=== PATIENT | female | born 1990 | race Caucasian/White ===

== ENCOUNTER 2024-07-10 09:44 | Outpatient (CLI) | payer OTHER, SELFPAY ==
[2024-07-10 14:28] LABS: Basophils Percent Auto 0.5 % (0.2-1.2); Eosinophils Absolute Auto 0.1 K/mm3 (0-0.3); Eosinophils Percent Auto 1.5 % (0-4.4); Hematocrit 41.2 % (37.0-47.0); Hemoglobin 13.5 g/dL (12.0-15.0); Immature Granulocyte Absolute 0.01 K/mm3 (0.00-0.031); Immature Granulocyte Percent A 0.1 % (0-0.5); Lymphocytes Absolute Auto 2.04 K/mm3 (0.9-3.2); Lymphocytes Percent Auto 27.7 % (18.3-44.2); Mean Corpuscular HGB Conc 32.8 g/dl (32-36); Mean Corpuscular Hemoglobin 30.7 pg (26-34); Mean Corpuscular Volume 93.6 fl (80-100); Mean Platelet Volume 10.7 fl (7.4-10.4); Monocytes Absolute Auto 0.5 K/mm3 (0.1-0.6); Monocytes Percent Auto 7.2 % (2.6-8.5); Neutrophils Absolute Auto 4.6 K/mm3 (1.3-6.7); Platelet Count Result 248 k/mm3 (150-375); Red Cell Distribution Width 12.3 % (11.5-14.5); White Blood Count 7.4 K/mm3 (4.5-10.0)
[2024-07-10 15:26] LABS: Alanine Aminotransferase 15 U/L (6-35); Albumin Level 4.4 g/dL (3.5-5.1); Alkaline Phosphatase 88 U/L (38-126); Anion Gap 6 mmol/L (4-12); Aspartate Amino Transferase 26 U/L (14-36); Bilirubin,Total 0.7 mg/dL (0.2-1.3); Blood Urea Nitrogen 22 mg/dL (7-17); Calcium 9.5 mg/dL (8.4-10.2); Carbon Dioxide 28 mmol/L (22-30); Chloride 106 mmol/L (98-107); Cholesterol 137 mg/dL (0-200); Estimated Glomerular Filt Rate > 60; Glucose 88 mg/dL (65-110); HDL Direct 50 mg/dL; Sodium 140 mmol/L (137-145); Triglycerides 42 mg/dL (<150)
[2024-07-10 15:36] LABS: LDL Cholesterol Direct 71 mg/dL
[2024-07-10 15:57] LABS: Vitamin D 25 Hydroxy 24.8 ng/mL
== END 2024-07-10 09:45 | disposition home or self-care (01) ==
LOC: ANHGOSHLAB 09:45
PROVIDERS: PCP Nurse Practitioner; Visit Provider Nurse Practitioner
DX: K59.00 Constipation, unspecified (principal); K64.9 Unspecified hemorrhoids; Z13.220 Encounter for screening for lipoid disorders; E55.9 Vitamin D deficiency, unspecified
CPT/HCPCS: 36415; 80053; 80061; 82306; 84443; 85025

== ENCOUNTER 2024-12-23 10:08 | Outpatient (CLI) | payer OTHER, SELFPAY ==
--- OUTSIDE RECORDS SUMMARY | 2024-12-23 11:30 | XMS_ITS | Encounter Summary ---
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 Gender Identity Not on file Sexual Orientation Not on file documented as of this encounter Plan of Treatment Not on file documented as of this encounter Procedures Procedure Name Priority Date/Time Associated Diagnosis Comments DERMATOPATHOLOGY Routine 12/05/2023 11:3 0 AM CDT documented in this encounter Results * DERMATOPATHOLOGY (12/05/2023 11:30 AM CDT) Case Report Dermatopathology Report Case: [id number] Authorizing Provider: Lashawn Bowers MD Collected: 12/05/2023 11:30 AM Ordering Location: [facility] Physician [facility] - Received: 12/06/2023 06:36 AM DermPath Lab Pathologist: Anahy Zamudio MD Specimen: Skin, mid chest 04/08/202 4 2:24 PM CDT DERMATOPATHOLOGY LABORATORY Final Diagnosis Specimen A. 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 Folliculitis; r/o Atypia and NMSC 2:24 PM CDT DERMATOPATHOLOGY LABORATORY Gross Description Specimen A: Received is one formalin filled container labeled with the patient's name and designated mid chest. The specimen consists of a shave biopsy measuring 5x3x1 mm. Jar 0. 2:24 PM CDT DERMATOPATHOLOGY LABORATORY Microscopic Description Specimen A. SKIN, mid chest: There is a cup-shaped invagination filled with cornified material and surrounded by slight epidermal hyperplasia in association with acantholytic dyskeratosis. 2:24 PM CDT DERMATOPATHOLOGY LABORATORY Disclaimer An external and internal positive and negative controls are appropriate for the histochemical, immunohistochemical and immunofluorescence stain(s) in this case (if any), except where stated explicitly. The performance characteristics of the stain(s) cited in this report were developed and its performance characteristic determined by the Dermatopathology Laboratory at [facility], directed by Dr. Alee Mark. These tests need not be, and therefore are not, approved by the [place] Food and Drug Administration. The tests are used for clinical purposes. Billing Codes Specimen Charges Stain Charges 05566 1 2:24 PM CDT DERMATOPATHOLOGY LABORATORY Embedded Images 2:24 PM CDT DERMATOPATHOLOGY LABORATORY Pathology/Cytolo gy TISSUE SPECIMEN FROM SKIN / Unknown 12/05/2023 11:30 AM CDT 12/06/2023 6:36 AM CDT Lashawn Bowers MD LAB - PATHOLOGY/CYTOLOGY OR DERABLES Final Result DERMATOPATHOLOGY LABORATORY [facility] - Department of Dermatology [address], [address] [phone] documented in this encounter Visit Diagnoses Not on filedocumented in this encounter
--- OUTSIDE RECORDS SUMMARY | 2024-12-23 11:30 | XMS_ITS | Encounter Summary ---
Author Organization [facility] Address [address] [facility] [place] [address] Care Team Providers Care Senior Accounting Associate Name Role Phone Unavailable Primary Care Provider Unavailabl e Encounter Details Date Type Department Care Team (Late st Contact Info) Description 11/18/2019 Lab Requisition [facility] DermPath Lab [address] [facility] [place] [address] Mojgan Molina DO [address] [facility] [address] [place] [address] Social History Tobacco Use Types Packs/Day Years Used Date Smoking Tobacco: Never Assessed Comments Unknown Sex and Gender Information Value Date Recorded Sex Assigned at Not on file 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 Gender Identity Not on file Sexual Orientation Not on file documented as of this encounter Plan of Treatment Not on file documented as of this encounter Procedures Procedure Name Priority Date/Time Associated Diagnosis Comments DERMATOPATHOLOGY Routine 11/17/2019 12:0 0 AM CDT documented in this encounter Results * DERMATOPATHOLOGY (11/17/2019 12:00 AM CDT) Case Report Dermatopathology Report Case: [id number] Authorizing Provider: Mojgan Molina DO Collected: 11/17/2019 12:00 AM Ordering Location: [facility] DermPath Lab Received: 11/18/2019 10:28 AM Pathologist: Ethel Martinez MD Specimens: A) - Skin, right upper arm B) - Skin, mid low back 0 7:22 PM CDT DERMATOPATHOLOGY LABORATORY Final Diagnosis Specimen A. SKIN, right upper arm: DERMAL FIBROSIS ADJACENT TO HAIR FOLLICLE, CONSISTENT WITH RUPTURE (L72.0) (see microscopic description) Specimen B. SKIN, mid low back: COMPOUND MELANOCYTIC PROLIFERATION; APPROXIMATES MARGIN (D48.5) (see microscopic description and comment) 0 7:22 PM [facility] DERMATOPATHOLOGY LABORATORY Clinical History A: R/O NMSC B: R/O atypia 0 7:22 PM [facility] DERMATOPATHOLOGY LABORATORY Gross Description Specimen A: Received is one formalin filled container labeled with the patient's name and designated right upper arm. The specimen consists of a shave biopsy measuring 5x4x1 mm. Jar 0. Specimen B: Received is one formalin filled container labeled with the patient's name and designated mid low back. The specimen consists of a shave biopsy measuring 7x6x1 mm. Jar 0. 0 7:22 PM [facility] DERMATOPATHOLOGY LABORATORY Microscopic Description Specimen A. SKIN, right upper arm: There are fibroblasts and collagen bundles oriented parallel to the skin surface with elongated blood vessels, some of which are oriented perpendicular to the skin surface. The scar is occurring adjacent to a hair follicle. SMA shows patchy weak positivity, and S100, desmin, and pancytokeratin show no significant staining within the scar. Specimen B. SKIN, mid low back: Sections show a compound melanocytic proliferation. There is a lentiginous proliferation of melanocytes between irregular nests, highlighted by Sox-10 immunostain. Scattered melanocytes show evidence of upward migration within the epidermis. In the dermis there are irregular nests of melanocytes. This lesion approximates the margin of the specimen. COMMENT: Because this lesion approximates the margin of the specimen, symmetry and circumscription can not be evaluated. Therefore, a complete but conservative re-excision is recommended to evaluate this lesion in its entirety. 0 7:22 PM [facility] DERMATOPATHOLOGY LABORATORY Disclaimer An external and internal positive and negative controls are appropriate for the histochemical, immunohistochemical and immunofluorescence stain(s) in this case (if any), except where stated explicitly. The performance characteristics of the stain(s) cited in this report were developed and its performance characteristic determined by the Dermatopathology Laboratory at [facility], directed by Dr. Alee Mark. These tests need not be, and therefore are not, approved by the [place] Food and Drug Administration. The tests are used for clinical purposes. Billing Codes Specimen Charges Stain Charges 32600 39059 1 1 85881 94149 90073 69015 12500 1 1 1 1 1 0 7:22 PM CDT DERMATOPATHOLOGY LABORATORY Embedded Images 0 7:22 PM CDT DERMATOPATHOLOGY LABORATORY Pathology/Cytology TISSUE SPECIMEN FROM SKIN / Unknown 11/17/2019 11/18/2019 10:28 AM CDT Miscellaneous samples (specimen) TISSUE SPECIMEN FROM SKIN / Unknown 11/17/2019 11/18/2019 10:28 AM CDT us Mojgan Molina DO LAB - PATHOLOGY/CYTOLOGY ORDERABLES Final Result DERMATOPATHOLOGY LABORATORY [facility] - Department of Dermatology [address] [place] [address] 5th Floor Lab B [place], [place] [id number] [place] [address] documented in this encounter Visit Diagnoses Not on filedocumented in this encounter
--- OUTSIDE RECORDS SUMMARY | 2024-12-23 11:30 | XMS_ITS | Clinical Summary ---
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 Unavailable [phone] Encounters Date Type Department Care Team Description 10/29/2024 Telephone [facility] ([facility]) [address] [place] [id number] Mey Barr RN Test Results (Right breast biopsy path results from 10/28/24) 10/28/2024 10:57 AM HHA - 10/28/2024 11:59 PM HHA Hospital Encounter [facility] ([facility]) [address] [place] [id number] Abnormal mammogram Discharge Disposition: Discharge to home or self care 10/28/2024 10:12 AM HHA - 10/28/2024 11:59 PM HHA Hospital Encounter [facility] ([facility]) [address] [place] [id number] Abnormal mammogram Discharge Disposition: Discharge to home or self care 10/21/2024 1:32 PM HHA - 10/21/2024 11:59 PM HHA Hospital Encounter [facility] ([facility]) [address] [place] [address] [id number] Unspecified lump in the right breast, upper outer quadrant Discharge Disposition: Discharge to home or self care 10/21/2024 1:32 PM HHA - 10/21/2024 11:59 PM HHA Hospital Encounter [facility] ([facility]) [address] [place] [address] Unspecified lump in the right breast, upper outer quadrant Discharge Disposition: Discharge to home or self care 09/24/2024 Orders Only [facility] [address] [place] [address] Mojgan Molina DO from Last 3 Months Surgical History Surgery Date Site/Laterality Comments BREAST BIOPSY 10/28/2024 Right Social History Tobacco Use Types Packs/Day Years Used Date Smoking Tobacco: Never Assessed Comments Unknown Sex and Gender Information Value Date Recorded Sex Assigned at Not on file Legal Sex Female 2:19 PM CDT Gender Identity Not on file Sexual Orientation Not on file Obstetrics History Plan of Treatment Health Maintenance Due Date Last Done Comments Cervical Cancer Screening 1992 Depression Screening 1992 Hepatitis C Screening 1992 Varicella Vaccines (1 of 2 - 13+ 2-dose series) 2005 Hepatitis B Screening 2010 Regular Well Visit/Exam 18-64 2010 Covid-19 Vaccine (3 - 2023-2 5 season) 2024 10/04/2020, 09/14/2020 Influenza Vaccine (Season Ended) 2025 DTaP/Tdap/Td Vaccine (2 - Td or Tdap) 10/26/2026 10/26/2016 HPV Vaccines Aged Out No longer eligi ble based on patient's age to complete this topic Pneumococcal vaccine <65 Aged Out No longer eligible based on patient's age to complete this topic Medical Devices Implanted Type Area Podiatric Medicine Professor Device Identifier Shelf Expiration Date Model / Serial / Lot Bard Peripheral Vascular Ultraclip Bard 17ga 10cm 2 Trigger Permanent Ultrasound [id number] - [id number] Implanted:Qty: 1 on 10/28/2024 by Salinas Coronado MD at [facility] Right: Breast [employer]ipheral [employer] [id number] / / Procedures Procedure Name Priority Date/Time Associated Diagnosis Comments IGNACIO POST CLIP PLACEMENT RIGHT Schedule Routine, Read Routine (OP Routine) 10/28/2024 11:12 AM HHA Abnormal mammogram US GUIDED BREAST BIOPSY RIGHT Schedule Routine, Read Routine (OP Routine) 10/28/2024 11:04 AM HHA Abnormal mammogram SURGICAL PATHOLOGY Routine 10/28/2024 10 :52 AM HHA Abnormal mammogram US BREAST RIGHT LIMITED Schedule Routine, Read Routine (OP Routine) 10/21/2024 3:30 PM HHA Unspecified lump in the right breast, upper outer quadrant DIAGNOSTIC MAMMOGRAM BILATERAL W IGNACIO Schedule Routine, Read Routine (OP Routine) 10/21/2024 2:25 PM HHA Unspecified lump in the right breast, upper outer quadrant SURGICAL PATHOLOGY Routine 09/24/2024 12 :00 AM HHA from Last 3 Months Results * Ignacio Post Clip Placement Right (10/28/2024 11:12 AM HHA) Anatomical Region Laterality Modality Breast Right Mammography 10/28/2024 11:1 4 AM HHA Addenda Addendum by Laura Clements MD on 10/29/2024 1:35 PM HHA ADDENDUM: Pathology from biopsy of the right breast showed fibroadenomatoid change, dense stromal fibrosis, no atypia or malignancy; please refer to pathology report for details. Pathology is benign and concordant. Normal interval screening mammography is recommended. The patient is known to have other benign-appearing masses and most likely they also are similar histology. Clinical and annual mammographic follow-up. Results and recommendations will be discussed with the patient by [facility] or referring provider staff and will be separately documented in the medical record. Electronically signed by: Laura Clements M.D. Impressions 10/28/2024 11:18 AM HHA Successful core needle biopsy of the RIGHT breast mass at the 7 o'clock position 3 cm from the nipple. Pathology is pending. Management of the additional masses will be guided by pathology results of the biopsied dominant mass. ASSESSMENT: Post Procedure Mammograms for Marker Placement Dictated by: Salinas Coronado MD The radiology attending physician has personally reviewed this study, and had reviewed and/or edited this written report and agrees with it. Electronically signed by: Laura Clements M.D. Narrative 10/28/2024 11:18 AM HHA EXAMINATION: RIGHT BREAST CORE BIOPSY UTILIZING SONOGRAPHIC GUIDANCE, PLACEMENT OF A BIOPSY TISSUE MARKER CLIP, AND RIGHT FULL FIELD DIGITAL MAMMOGRAM WITH DIGITAL BREAST TOMOSYNTHESIS HISTORY: Abnormal breast imaging. 34-year-old woman with multiple right breast masses initially presenting as a single palpable right breast mass. Ultrasound guided core needle biopsy is requested to evaluate for malignancy. COMPARISON: Ultrasound 10/21/2024 BREAST PARENCHYMAL COMPOSITION: The breasts are extremely dense, which lowers the sensitivity of mammography. PROCEDURE AND FINDINGS: The risks and potential benefits of the procedures were discussed with the patient and written informed consent was obtained. After sterile preparation of the skin, 1% lidocaine was utilized for local anesthesia. A small skin incision was made with a #11 scalpel blade. A 14G spring-loaded biopsy needle was then advanced through the skin incision to the edge of the lesion of interest at the 7 o'clock position 3 cm from the nipple from a lateral approach utilizing sonographic guidance. A total of 3 tissue cores were obtained through the lesion. An UltraClip ribbon-shaped tissue marker clip was then placed at the biopsy site. Hemostasis was achieved. Dermabond bandage and an ice pack were applied. There was no evidence of significant immediate complication. The patient was given verbal as well as written post procedural instructions prior to release from the department. The tissue cores were submitted to surgical pathology in formalin for histologic analysis. A two-view RIGHT digital mammogram, including digital breast tomosynthesis, obtained post procedure demonstrates that the tissue marker clip is in expected position. The attending radiologist, Dr. Laura Clements M.D., was present throughout the entire procedure. Dr. Salinas Coronado MD (diagnostic vice president of advertising) also participated in this examination. Procedure Note Laura Clements MD - 10/28/2024 EXAMINATION: RIGHT BREAST CORE BIOPSY UTILIZING SONOGRAPHIC GUIDANCE, PLACEMENT OF A BIOPSY TISSUE MARKER CLIP, AND RIGHT FULL FIELD DIGITAL MAMMOGRAM WITH DIGITAL BREAST TOMOSYNTHESIS HISTORY: Abnormal breast imaging. 34-year-old woman with multiple right breast masses initially presenting as a single palpable right breast mass. Ultrasound guided core needle biopsy is requested to evaluate for malignancy. COMPARISON: Ultrasound 10/21/2024 BREAST PARENCHYMAL COMPOSITION: The breasts are extremely dense, which lowers the sensitivity of mammography. PROCEDURE AND FINDINGS: The risks and potential benefits of the procedures were discussed with the patient and written informed consent was obtained. After sterile preparation of the skin, 1% lidocaine was utilized for local anesthesia. A small skin incision was made with a #11 scalpel blade. A 14G spring-loaded biopsy needle was then advanced through the skin incision to the edge of the lesion of interest at the 7 o'clock position 3 cm from the nipple from a lateral approach utilizing sonographic guidance. A total of 3 tissue cores were obtained through the lesion. An UltraClip ribbon-shaped tissue marker clip was then placed at the biopsy site. Hemostasis was achieved. Dermabond bandage and an ice pack were applied. There was no evidence of significant immediate complication. The patient was given verbal as well as written post procedural instructions prior to release from the department. The tissue cores were submitted to surgical pathology in formalin for histologic analysis. A two-view RIGHT digital mammogram, including digital breast tomosynthesis, obtained post procedure demonstrates that the tissue marker clip is in expected position. The attending radiologist, Dr. Laura Clements M.D., was present throughout the entire procedure. Dr. Salinas Coronado MD (diagnostic vice president of advertising) also participated in this examination. IMPRESSION: Successful core needle biopsy of the RIGHT breast mass at the 7 o'clock position 3 cm from the nipple. Pathology is pending. Management of the additional masses will be guided by pathology results of the biopsied dominant mass. ASSESSMENT: Post Procedure Mammograms for Marker Placement Dictated by: Salinas Coronado MD The radiology attending physician has personally reviewed this study, and had reviewed and/or edited this written report and agrees with it. Electronically signed by: Laura Clements M.D. us Ashish Rodrigues NP IMG MAMMO PROCEDURES Edited Res ult - Final * US Guided Breast Biopsy Right (10/28/2024 11:04 AM HHA) Anatomical Region Laterality Modality Breast Right Ultrasound 10/28/2024 11:1 4 AM HHA Addenda Addendum by Laura Clements MD on 10/29/2024 1:35 PM HHA ADDENDUM: Pathology from biopsy of the right breast showed fibroadenomatoid change, dense stromal fibrosis, no atypia or malignancy; please refer to pathology report for details. Pathology is benign and concordant. Normal interval screening mammography is recommended. The patient is known to have other benign-appearing masses and most likely they also are similar histology. Clinical and annual mammographic follow-up. Results and recommendations will be discussed with the patient by [facility] or referring provider staff and will be separately documented in the medical record. Electronically signed by: Laura Clements M.D. Impressions 10/28/2024 11:18 AM HHA Successful core needle biopsy of the RIGHT breast mass at the 7 o'clock position 3 cm from the nipple. Pathology is pending. Management of the additional masses will be guided by pathology results of the biopsied dominant mass. ASSESSMENT: Post Procedure Mammograms for Marker Placement Dictated by: Salinas Coronado MD The radiology attending physician has personally reviewed this study, and had reviewed and/or edited this written report and agrees with it. Electronically signed by: Laura Clements M.D. Narrative 10/28/2024 11:18 AM HHA EXAMINATION: RIGHT BREAST CORE BIOPSY UTILIZING SONOGRAPHIC GUIDANCE, PLACEMENT OF A BIOPSY TISSUE MARKER CLIP, AND RIGHT FULL FIELD DIGITAL MAMMOGRAM WITH DIGITAL BREAST TOMOSYNTHESIS HISTORY: Abnormal breast imaging. 34-year-old woman with multiple right breast masses initially presenting as a single palpable right breast mass. Ultrasound guided core needle biopsy is requested to evaluate for malignancy. COMPARISON: Ultrasound 10/21/2024 BREAST PARENCHYMAL COMPOSITION: The breasts are extremely dense, which lowers the sensitivity of mammography. PROCEDURE AND FINDINGS: The risks and potential benefits of the procedures were discussed with the patient and written informed consent was obtained. After sterile preparation of the skin, 1% lidocaine was utilized for local anesthesia. A small skin incision was made with a #11 scalpel blade. A 14G spring-loaded biopsy needle was then advanced through the skin incision to the edge of the lesion of interest at the 7 o'clock position 3 cm from the nipple from a lateral approach utilizing sonographic guidance. A total of 3 tissue cores were obtained through the lesion. An UltraClip ribbon-shaped tissue marker clip was then placed at the biopsy site. Hemostasis was achieved. Dermabond bandage and an ice pack were applied. There was no evidence of significant immediate complication. The patient was given verbal as well as written post procedural instructions prior to release from the department. The tissue cores were submitted to surgical pathology in formalin for histologic analysis. A two-view RIGHT digital mammogram, including digital breast tomosynthesis, obtained post procedure demonstrates that the tissue marker clip is in expected position. The attending radiologist, Dr. Laura Clements M.D., was present throughout the entire procedure. Dr. Salinas Coronado MD (diagnostic vice president of advertising) also participated in this examination. Procedure Note Laura Clements MD - 10/28/2024 EXAMINATION: RIGHT BREAST CORE BIOPSY UTILIZING SONOGRAPHIC GUIDANCE, PLACEMENT OF A BIOPSY TISSUE MARKER CLIP, AND RIGHT FULL FIELD DIGITAL MAMMOGRAM WITH DIGITAL BREAST TOMOSYNTHESIS HISTORY: Abnormal breast imaging. 34-year-old woman with multiple right breast masses initially presenting as a single palpable right breast mass. Ultrasound guided core needle biopsy is requested to evaluate for malignancy. COMPARISON: Ultrasound 10/21/2024 BREAST PARENCHYMAL COMPOSITION: The breasts are extremely dense, which lowers the sensitivity of mammography. PROCEDURE AND FINDINGS: The risks and potential benefits of the procedures were discussed with the patient and written informed consent was obtained. After sterile preparation of the skin, 1% lidocaine was utilized for local anesthesia. A small skin incision was made with a #11 scalpel blade. A 14G spring-loaded biopsy needle was then advanced through the skin incision to the edge of the lesion of interest at the 7 o'clock position 3 cm from the nipple from a lateral approach utilizing sonographic guidance. A total of 3 tissue cores were obtained through the lesion. An UltraClip ribbon-shaped tissue marker clip was then placed at the biopsy site. Hemostasis was achieved. Dermabond bandage and an ice pack were applied. There was no evidence of significant immediate complication. The patient was given verbal as well as written post procedural instructions prior to release from the department. The tissue cores were submitted to surgical pathology in formalin for histologic analysis. A two-view RIGHT digital mammogram, including digital breast tomosynthesis, obtained post procedure demonstrates that the tissue marker clip is in expected position. The attending radiologist, Dr. Laura Clements M.D., was present throughout the entire procedure. Dr. Salinas Coronado MD (diagnostic vice president of advertising) also participated in this examination. IMPRESSION: Successful core needle biopsy of the RIGHT breast mass at the 7 o'clock position 3 cm from the nipple. Pathology is pending. Management of the additional masses will be guided by pathology results of the biopsied dominant mass. ASSESSMENT: Post Procedure Mammograms for Marker Placement Dictated by: Salinas Coronado MD The radiology attending physician has personally reviewed this study, and had reviewed and/or edited this written report and agrees with it. Electronically signed by: Laura Clements M.D. us Ashish Rodrigues NP IMG MAMMO PROCEDURES Edited Res ult - Final * Surgical pathology (10/28/2024 10:52 AM HHA) Tissue specimen (specimen) (Breast biopsy, needle core) 10/28/2024 10:52 AM HHA Comment:right breast 7:00 3 cm/fn, ultrasound biopsy, birads 4a Narrative PATHOLOGY [facility] - 10/29/2024 10:17 AM HHA EPIC results best viewed via link to PDF [facility]ot[facility] [place] [address] Note to Patients: This report may contain a detailed description of human tissue sent by a health care provider to the laboratory for pathologic evaluation. The content of this report is essential for diagnosis and may provide important critical findings. This information may be unfamiliar to patients to review without a medical professional present. It is advised that the patient review this report in the presence of a health care provider who can answer questions and explain the details. SURGICAL PATHOLOGY REPORT FINAL Patient Name: EDWARD KEATING Gender: F : 1990 (Age: 34) Address: [address] [place] [id number] Hospital #: [id number] Taken:10/28/2024 Received:10/28/2024 Reported: 10/29/2024 Patient Type: [facility] Ancillary Service: UNKNOWN Location: Physician(s): Unknown Doctor Diagnosis: Breast, right, 7:00 3 cm from nipple, biopsy - Dense stromal fibrosis with fibroadenomatoid change - No evidence of atypia or alignancy gp/10/29/2024 08:46 By this signature, I attest that the above diagnosis is based upon my personal examination of the slides(and/or other material indicated in the diagnosis). Juan Snider M.D. Report Electronically Reviewed and Signed Out By Juan Snider M.D. 10/29/2024 10:17:15 Elena Leary D.O. History: The patient is a 34-year-old woman presenting for abnormal mammogram. Operative procedure: right breast biopsy, BI-RADS 4A. Specimen(s) Received: A: Right breast 7-00 3 cm/fn, ultrasound, birads 4a Gross Description: Received in formalin, labeled with the patient s identifiers and right breast 7 o'clock 3 cm FN ultrasound biopsy BI-RADS 4A are four yellow and white cores of fibrofatty tissue (0.8-2.5 cm each in length by 0.2 cm in diameter). Labeled A1 to A2. Jar 0. Placed in formalin immediately after collection. Total fixation time= 7.0 hours. sxst/10/28/2024 13:16 PA(s): Roshni Guerrero By this signature, I attest that the above diagnosis is based upon my personal examination of the slides(and/or other material). Addenda/Procedures The performance characteristics of some immunohistochemical stains, fluorescence in-situ hybridization tests and immunophenotyping by flow cytometry cited in this report (if any) were determined by the Surgical Pathology and Flow Cytometry Departments at [facility] as part of an ongoing supplier quality specialist program and in compliance with federally mandated regulations drawn from the Clinical Laboratory Improvement Act of 1988 (CLIA '88). Some of these tests rely on the use of analyte specific reagents and are subject to specific labeling requirements by the US Food and Drug Administration. Such diagnostic tests may only be performed in a facility that is certified by the Department of Health and Human Services as a high complexity laboratory under CLIA '88. The FDA has determined that such clearance or approval is not necessary. This test is used for clinical purposes. It should not be regarded as investigational or for research. Nevertheless, federal rules concerning the medical use of analyte specific reagents require that the following disclaimer be attached to the report: This test was developed and its performance characteristics determined by the Surgical Pathology and Flow Cytometry Departments of [facility]. It has not been cleared or approved by the U. S. Food and Drug Administration. IMAGES AND SCANNED DOCUMENTS, IF INCLUDED, ONLY VIEWABLE IN PDF VERSION OF REPORT Ashish Rodrigues NP LAB PATHOLOGY ORDERABLES Final Result PATHOLOGY [facility] [address]rd Floor [place], [place] [phone] * US Breast Right Limited (10/21/2024 3:30 PM HHA) Anatomical Region Laterality Modality Breast Right Ultrasound 10/21/2024 4:06 PM HHA Impressions 10/21/2024 4:37 PM HHA Therefore oval lobulated masses in the right breast as described above, the largest of which measures 2.2 x 1.3 x 1.8 cm at 7:00, 3 cm from the nipple. One of these masses measuring 1.7 cm at the 9:30 position, 3 cm from the nipple is located more superficially and corresponds to the palpable area concern in the RIGHT breast. Recommend ultrasound-guided biopsy of the largest mass at the 7 o'clock position, 3 cm from the nipple. Management of the additional 3 similar-appearing masses in the RIGHT breast is to be determined based on pathology of the biopsy. The method of initial detection of finding was patient-reported clinical symptom (Pat). OVERALL FINAL ASSESSMENT: SUSPICIOUS. BI-RADS Category 4A: Low suspicion for malignancy. RECOMMENDATION: Ultrasound-guided biopsy of 2.2 cm right breast mass at 7:00, 3 cm from the nipple. Management of the remaining masses in the RIGHT breast should be guided by pathology results of the dominant mass. Dr. Faisal Ling discussed the above findings and recommendations with the patient. The patient is scheduled to return to [facility] for biopsy on 11/02/2024 at 2:15 PM. This facility will contact the referring clinician's office for an order. Dictated by: Faisal Ling M.D. The radiology attending physician has personally reviewed this study, and had reviewed and/or edited this written report and agrees with it. Electronically signed by: Breanna Sawyer M.D. Narrative 10/21/2024 4:37 PM HHA EXAMINATION: BILATERAL DIGITAL DIAGNOSTIC MAMMOGRAM INCLUDING CAD AND BILATERAL DIGITAL BREAST TOMOSYNTHESIS; RIGHT BREAST SONOGRAM HISTORY: 34-year-old female with palpable abnormality in the right breast COMPARISON: None available TECHNIQUE: Full field digital mammographic views of BOTH breasts were performed, including computer aided detection (CAD) and BILATERAL digital breast tomosynthesis (DBT). Directed ultrasound evaluation of the RIGHT breast was performed. BREAST PARENCHYMAL COMPOSITION: The breasts are extremely dense, which lowers the sensitivity of mammography. MAMMOGRAM FINDINGS: Multiple oval masses with partly circumscribed, partly obscured borders are seen in the right breast, including in the anterior to middle upper outer right breast at the area of palpable concern measuring 1.6 cm. There is an additional mass 1.3 cm in the posterior upper outer right breast. 2 additional masses with partly obscured, partly circumscribed borders are seen in the lower central and slightly lower outer right breast at mid depth. A benign intramammary lymph node is partially visualized in the posterior upper RIGHT breast on the spot compression tangential view. No suspicious grouped calcifications, mass, or architectural distortion suggestive of malignancy is detected in the LEFT breast, given the extremely dense breast tissue. A benign-appearing lymph node is noted in the posterior outer LEFT breast on the spot compression laterally exaggerated craniocaudal view. SONOGRAM FINDINGS: In the right breast at the area of palpable concern at 9:30, 3 cm from the nipple there is an overall oval but lobulated hypoechoic mass with some internal vascularity and posterior acoustic enhancement measuring approximately 1.7 x 0.9 x 1.6 cm. There are multiple other masses within the right breast with similar sonographic appearance, including a 2.2 x 1.3 x 1.8 cm mass at 7:00, 3 cm from the nipple, a 1.3 x 0.5 x 0.8 cm mass at 8:00, 3 cm from the nipple, and a 1.6 x 0.6 x 1.2 cm mass at 10:30, 7 cm from the nipple. These correspond to the masses seen on mammography as detailed above. There is additionally an incidental benign cluster of cysts at the 10:30, 5 cm from the nipple measuring 0.6 x 0.4 x 0.6 cm. Procedure Note Breanna Sawyer MD - 10/21/2024 EXAMINATION: BILATERAL DIGITAL DIAGNOSTIC MAMMOGRAM INCLUDING CAD AND BILATERAL DIGITAL BREAST TOMOSYNTHESIS; RIGHT BREAST SONOGRAM HISTORY: 34-year-old female with palpable abnormality in the right breast COMPARISON: None available TECHNIQUE: Full field digital mammographic views of BOTH breasts were performed, including computer aided detection (CAD) and BILATERAL digital breast tomosynthesis (DBT). Directed ultrasound evaluation of the RIGHT breast was performed. BREAST PARENCHYMAL COMPOSITION: The breasts are extremely dense, which lowers the sensitivity of mammography. MAMMOGRAM FINDINGS: Multiple oval masses with partly circumscribed, partly obscured borders are seen in the right breast, including in the anterior to middle upper outer right breast at the area of palpable concern measuring 1.6 cm. There is an additional mass 1.3 cm in the posterior upper outer right breast. 2 additional masses with partly obscured, partly circumscribed borders are seen in the lower central and slightly lower outer right breast at mid depth. A benign intramammary lymph node is partially visualized in the posterior upper RIGHT breast on the spot compression tangential view. No suspicious grouped calcifications, mass, or architectural distortion suggestive of malignancy is detected in the LEFT breast, given the extremely dense breast tissue. A benign-appearing lymph node is noted in the posterior outer LEFT breast on the spot compression laterally exaggerated craniocaudal view. SONOGRAM FINDINGS: In the right breast at the area of palpable concern at 9:30, 3 cm from the nipple there is an overall oval but lobulated hypoechoic mass with some internal vascularity and posterior acoustic enhancement measuring approximately 1.7 x 0.9 x 1.6 cm. There are multiple other masses within the right breast with similar sonographic appearance, including a 2.2 x 1.3 x 1.8 cm mass at 7:00, 3 cm from the nipple, a 1.3 x 0.5 x 0.8 cm mass at 8:00, 3 cm from the nipple, and a 1.6 x 0.6 x 1.2 cm mass at 10:30, 7 cm from the nipple. These correspond to the masses seen on mammography as detailed above. There is additionally an incidental benign cluster of cysts at the 10:30, 5 cm from the nipple measuring 0.6 x 0.4 x 0.6 cm. IMPRESSION: Therefore oval lobulated masses in the right breast as described above, the largest of which measures 2.2 x 1.3 x 1.8 cm at 7:00, 3 cm from the nipple. One of these masses measuring 1.7 cm at the 9:30 position, 3 cm from the nipple is located more superficially and corresponds to the palpable area concern in the RIGHT breast. Recommend ultrasound-guided biopsy of the largest mass at the 7 o'clock position, 3 cm from the nipple. Management of the additional 3 similar-appearing masses in the RIGHT breast is to be determined based on pathology of the biopsy. The method of initial detection of finding was patient-reported clinical symptom (Pat). OVERALL FINAL ASSESSMENT: SUSPICIOUS. BI-RADS Category 4A: Low suspicion for malignancy. RECOMMENDATION: Ultrasound-guided biopsy of 2.2 cm right breast mass at 7:00, 3 cm from the nipple. Management of the remaining masses in the RIGHT breast should be guided by pathology results of the dominant mass. Dr. Faisal Ling discussed the above findings and recommendations with the patient. The patient is scheduled to return to [facility] for biopsy on 11/02/2024 at 2:15 PM. This facility will contact the referring clinician's office for an order. Dictated by: Faisal Ling M.D. The radiology attending physician has personally reviewed this study, and had reviewed and/or edited this written report and agrees with it. Electronically signed by: Breanna Sawyer M.D. Ashish Rodrigues NP IMG MAMMO PROCEDURES Final Resu lt * Diagnostic Mammogram Bilateral W Ignacio (10/21/2024 2:25 PM [facility]) Anatomical Region Laterality Modality Breast Bilateral Mammography 10/21/2024 4:06 PM [facility] Impressions 10/21/2024 4:37 PM [facility] Therefore oval lobulated masses in the right breast as described above, the largest of which measures 2.2 x 1.3 x 1.8 cm at 7:00, 3 cm from the nipple. One of these masses measuring 1.7 cm at the 9:30 position, 3 cm from the nipple is located more superficially and corresponds to the palpable area concern in the RIGHT breast. Recommend ultrasound-guided biopsy of the largest mass at the 7 o'clock position, 3 cm from the nipple. Management of the additional 3 similar-appearing masses in the RIGHT breast is to be determined based on pathology of the biopsy. The method of initial detection of finding was patient-reported clinical symptom (Pat). OVERALL FINAL ASSESSMENT: SUSPICIOUS. BI-RADS Category 4A: Low suspicion for malignancy. RECOMMENDATION: Ultrasound-guided biopsy of 2.2 cm right breast mass at 7:00, 3 cm from the nipple. Management of the remaining masses in the RIGHT breast should be guided by pathology results of the dominant mass. Dr. Faisal Ling discussed the above findings and recommendations with the patient. The patient is scheduled to return to the [facility] for biopsy on 11/02/2024 at 2:15 PM. This facility will contact the referring clinician's office for an order. Dictated by: Faisal Ling M.D. The radiology attending physician has personally reviewed this study, and had reviewed and/or edited this written report and agrees with it. Electronically signed by: Breanna Sawyer M.D. Narrative 10/21/2024 4:37 PM [facility] EXAMINATION: BILATERAL DIGITAL DIAGNOSTIC MAMMOGRAM INCLUDING CAD AND BILATERAL DIGITAL BREAST TOMOSYNTHESIS; RIGHT BREAST SONOGRAM HISTORY: 34-year-old female with palpable abnormality in the right breast COMPARISON: None available TECHNIQUE: Full field digital mammographic views of BOTH breasts were performed, including computer aided detection (CAD) and BILATERAL digital breast tomosynthesis (DBT). Directed ultrasound evaluation of the RIGHT breast was performed. BREAST PARENCHYMAL COMPOSITION: The breasts are extremely dense, which lowers the sensitivity of mammography. MAMMOGRAM FINDINGS: Multiple oval masses with partly circumscribed, partly obscured borders are seen in the right breast, including in the anterior to middle upper outer right breast at the area of palpable concern measuring 1.6 cm. There is an additional mass 1.3 cm in the posterior upper outer right breast. 2 additional masses with partly obscured, partly circumscribed borders are seen in the lower central and slightly lower outer right breast at mid depth. A benign intramammary lymph node is partially visualized in the posterior upper RIGHT breast on the spot compression tangential view. No suspicious grouped calcifications, mass, or architectural distortion suggestive of malignancy is detected in the LEFT breast, given the extremely dense breast tissue. A benign-appearing lymph node is noted in the posterior outer LEFT breast on the spot compression laterally exaggerated craniocaudal view. SONOGRAM FINDINGS: In the right breast at the area of palpable concern at 9:30, 3 cm from the nipple there is an overall oval but lobulated hypoechoic mass with some internal vascularity and posterior acoustic enhancement measuring approximately 1.7 x 0.9 x 1.6 cm. There are multiple other masses within the right breast with similar sonographic appearance, including a 2.2 x 1.3 x 1.8 cm mass at 7:00, 3 cm from the nipple, a 1.3 x 0.5 x 0.8 cm mass at 8:00, 3 cm from the nipple, and a 1.6 x 0.6 x 1.2 cm mass at 10:30, 7 cm from the nipple. These correspond to the masses seen on mammography as detailed above. There is additionally an incidental benign cluster of cysts at the 10:30, 5 cm from the nipple measuring 0.6 x 0.4 x 0.6 cm. Procedure Note Breanna Sawyer MD - 10/21/2024 EXAMINATION: BILATERAL DIGITAL DIAGNOSTIC MAMMOGRAM INCLUDING CAD AND BILATERAL DIGITAL BREAST TOMOSYNTHESIS; RIGHT BREAST SONOGRAM HISTORY: 34-year-old female with palpable abnormality in the right breast COMPARISON: None available TECHNIQUE: Full field digital mammographic views of BOTH breasts were performed, including computer aided detection (CAD) and BILATERAL digital breast tomosynthesis (DBT). Directed ultrasound evaluation of the RIGHT breast was performed. BREAST PARENCHYMAL COMPOSITION: The breasts are extremely dense, which lowers the sensitivity of mammography. MAMMOGRAM FINDINGS: Multiple oval masses with partly circumscribed, partly obscured borders are seen in the right breast, including in the anterior to middle upper outer right breast at the area of palpable concern measuring 1.6 cm. There is an additional mass 1.3 cm in the posterior upper outer right breast. 2 additional masses with partly obscured, partly circumscribed borders are seen in the lower central and slightly lower outer right breast at mid depth. A benign intramammary lymph node is partially visualized in the posterior upper RIGHT breast on the spot compression tangential view. No suspicious grouped calcifications, mass, or architectural distortion suggestive of malignancy is detected in the LEFT breast, given the extremely dense breast tissue. A benign-appearing lymph node is noted in the posterior outer LEFT breast on the spot compression laterally exaggerated craniocaudal view. SONOGRAM FINDINGS: In the right breast at the area of palpable concern at 9:30, 3 cm from the nipple there is an overall oval but lobulated hypoechoic mass with some internal vascularity and posterior acoustic enhancement measuring approximately 1.7 x 0.9 x 1.6 cm. There are multiple other masses within the right breast with similar sonographic appearance, including a 2.2 x 1.3 x 1.8 cm mass at 7:00, 3 cm from the nipple, a 1.3 x 0.5 x 0.8 cm mass at 8:00, 3 cm from the nipple, and a 1.6 x 0.6 x 1.2 cm mass at 10:30, 7 cm from the nipple. These correspond to the masses seen on mammography as detailed above. There is additionally an incidental benign cluster of cysts at the 10:30, 5 cm from the nipple measuring 0.6 x 0.4 x 0.6 cm. IMPRESSION: Therefore oval lobulated masses in the right breast as described above, the largest of which measures 2.2 x 1.3 x 1.8 cm at 7:00, 3 cm from the nipple. One of these masses measuring 1.7 cm at the 9:30 position, 3 cm from the nipple is located more superficially and corresponds to the palpable area concern in the RIGHT breast. Recommend ultrasound-guided biopsy of the largest mass at the 7 o'clock position, 3 cm from the nipple. Management of the additional 3 similar-appearing masses in the RIGHT breast is to be determined based on pathology of the biopsy. The method of initial detection of finding was patient-reported clinical symptom (Pat). OVERALL FINAL ASSESSMENT: SUSPICIOUS. BI-RADS Category 4A: Low suspicion for malignancy. RECOMMENDATION: Ultrasound-guided biopsy of 2.2 cm right breast mass at 7:00, 3 cm from the nipple. Management of the remaining masses in the RIGHT breast should be guided by pathology results of the dominant mass. Dr. Faisal Ling discussed the above findings and recommendations with the patient. The patient is scheduled to return to the [facility] for biopsy on 11/02/2024 at 2:15 PM. This facility will contact the referring clinician's office for an order. Dictated by: Faisal Ling M.D. The radiology attending physician has personally reviewed this study, and had reviewed and/or edited this written report and agrees with it. Electronically signed by: Breanna Sawyer M.D. us Ashish Lilia [facility] IMG MAMMO PROCEDURES Final Resu lt * Surgical pathology (09/24/2024 12:00 AM [facility]) Skin, shave biopsy 09/24/2024 09/29/2024 6:33 AM [facility] Narrative 09/30/2024 2:12 PM [facility] EPIC results best viewed via link to PDF [facility] [address] [place] [address], [address], [place] [address] [email or web address] Note to Patients: This report may contain a detailed description of human tissue sent by a health care provider to the laboratory for pathologic evaluation. The content of this report is essential for diagnosis and may provide important critical findings. This information may be unfamiliar to patients to review without a medical professional present. It is advised that the patient review this report in the presence of a health care provider who can answer questions and explain the details. FINAL REPORT Patient Information: PATIENT NAME: EDWARD KEATING SEX: F : 1990 (Age: 33) Specimen Information: COLLECTED: 09/24/2024 RECEIVED: 09/29/2024 REPORTED: 09/30/2024 Submitting Physician Information: Mojgan Molina D.O. [address] [place] [address], [place] [address], DERMATOPATHOLOGY REPORT RESULTS DIAGNOSIS: SKIN, LEFT THIGH, SHAVE BIOPSY: COMPOUND MELANOCYTIC NEVUS dh/isr By this signature, I attest that the above diagnosis is based upon my personal examination of the slides(and/or other material indicated in the diagnosis). Tanvi Richmond M.D. Report Electronically Reviewed and Signed Out By Tanvi Richmond M.D. 09/30/2024 14:12:55 CLINICAL INFORMATION NEVUS; R/O ATYPIA SPECIMEN DATA MICROSCOPIC DESCRIPTION: Enlarged monomorphous melanocytes are arranged as solitary units and nests at the dermo-epidermal junction and as uniform nests, cords and strands within the dermis. (D22.9) GROSS DESCRIPTION: Received in a formalin-containing bottle is a superficial fragment of pale oleary, finely scaling, semi-translucent skin measuring 0.5 by 0.4 by 0.1 cm. The surgical margin is inked blue.The specimen bears a oleary, variegated area measuring 0.3 by 0.3 cm. The specimen is sectioned into 2 pieces and submitted entirely in a single cassette. Due to shrinkage, measurements may be different than those at the time of procedure. dh/mxf ICD-9 A; ZSD.407 Clerical Data A; 90692 The characteristics of special, immunohistochemical, and immunofluorescence stains and in-situ hybridization tests performed by the [facility] were deemed acceptable in ongoing supplier quality specialist measures and in compliance with regulations drawn from the Clinical Laboratory Improvement Act hc4854 (CLIA '88). Control reactions for all stains performed were deemed adequate and appropriate by a pathologist prior to evaluation of patient tissue. Some diagnoses were rendered with the assistance of laboratory-developed tests utilizing analyte-specific reagents; the performance characteristic of these tests were determined by [facility] and are not cleared or approved by the [place] Food an Drug administration. Laboratory developed test may only be performed in a facility that is certified by the [facility] as a high-complexity laboratory under CLIA '88. These tests are used for clinical purposes and are not investigational. Mojgan Molina DO LAB PATHOLOGY ORDERABLES Final Result from Last 3 Months [facility] [employer] [employer] Address: [facility] [id number] [place] [address] [employer] Address: [facility] [id number] [place] [address] Care Teams Commercial Fisherman Relationship Specialty Start Date End Date Greer Bowers NP [address] [place] [address] PCP - General Internal Medicine 10/19/24 Ashish Rodrigues NP [address] [place] [address] Nurse Practitioner Nurse Practitioner 10/21/24
--- OUTSIDE RECORDS SUMMARY | 2024-12-23 11:30 | XMS_ITS | Referral Summary ---
Author Organization [facility] Address [address] [place] [address] Care Team Providers Care Shoe Handler Name Role Phone Greer Bowers NP Primary Care Provider [phone] Ashish Rodrigues CERTIFIED PHLEBOTOMIST Unavailable [phone] Encounters Date Type Department Care Team Description 10/29/[address] [facility] [place] [facility] [address] [place] [phone] Mey Barr RN Test Results (Right breast biopsy path results from 10/28/24) 10/28/2024 10:57 AM MC KAY MACHINE OPERATOR - 10/28/2024 11:59 PM MC KAY MACHINE OPERATOR Hospital Encounter [facility] [address] [place] [address] Abnormal mammogram Discharge Disposition: Discharge to home or self care 10/28/2024 10:12 AM MC KAY MACHINE OPERATOR - 10/28/2024 11:59 PM MC KAY MACHINE OPERATOR Hospital Encounter [facility] [address] [place] [phone] Abnormal mammogram Discharge Disposition: Discharge to home or self care 10/21/2024 1:32 PM MC KAY MACHINE OPERATOR - 10/21/2024 11:59 PM MC KAY MACHINE OPERATOR Hospital Encounter [facility] [address] [place] [address] [phone] Unspecified lump in the right breast, upper outer quadrant Discharge Disposition: Discharge to home or self care 10/21/2024 1:32 PM MC KAY MACHINE OPERATOR - 10/21/2024 11:59 PM MC KAY MACHINE OPERATOR Hospital Encounter [facility] [address] [place] [address] Unspecified lump in the right breast, upper outer quadrant Discharge Disposition: Discharge to home or self care 09/24/2024 Orders Only [facility] [address] [place] [address] Mojgan Molina DO from Last 3 Months Social History Tobacco Use Types Packs/Day Years Used Date Smoking Tobacco: Never Assessed Comments Unknown Sex and Gender Information Value Date Recorded Sex Assigned at Not on file Legal Sex Female 2:19 PM CDT Gender Identity Not on file Sexual Orientation Not on file Plan of Treatment Not on file Medical Devices Implanted Type Area Regulatory Affairs Portfolio Leader Device Identifier Shelf Expiration Date Model / Serial / Lot Bard Peripheral Vascular Ultraclip Bard 17ga 10cm 2 Trigger Permanent Ultrasound [id number] - [id number] Implanted:Qty: 1 on 10/28/2024 by Salinas Coronado MD at [facility] Right: Breast Bard Peripheral Vascular [id number] / / Procedures Procedure Name Priority Date/Time Associated Diagnosis Comments IGNACIO POST CLIP PLACEMENT RIGHT Schedule Routine, Read Routine (OP Routine) 10/28/2024 11:12 AM MC KAY MACHINE OPERATOR Abnormal mammogram US GUIDED BREAST BIOPSY RIGHT Schedule Routine, Read Routine (OP Routine) 10/28/2024 11:04 AM MC KAY MACHINE OPERATOR Abnormal mammogram SURGICAL PATHOLOGY Routine 10/28/2024 10 :52 AM MC KAY MACHINE OPERATOR Abnormal mammogram US BREAST RIGHT LIMITED Schedule Routine, Read Routine (OP Routine) 10/21/2024 3:30 PM MC KAY MACHINE OPERATOR Unspecified lump in the right breast, upper outer quadrant DIAGNOSTIC MAMMOGRAM BILATERAL W IGNACIO Schedule Routine, Read Routine (OP Routine) 10/21/2024 2:25 PM MC KAY MACHINE OPERATOR Unspecified lump in the right breast, upper outer quadrant SURGICAL PATHOLOGY Routine 09/24/2024 12 :00 AM MC KAY MACHINE OPERATOR from Last 3 Months Results * Ignacio Post Clip Placement Right (10/28/2024 11:12 AM MC KAY MACHINE OPERATOR) Anatomical Region Laterality Modality Breast Right Mammography 10/28/2024 11:1 4 AM MC KAY MACHINE OPERATOR Addenda Addendum by Laura Clements MD on 10/29/2024 1:35 PM MC KAY MACHINE OPERATOR ADDENDUM: Pathology from biopsy of the right [...] Laura Clements M.D. Impressions 10/28/2024 11:18 AM MC KAY MACHINE OPERATOR Successful core needle biopsy of the RIGHT [...] Laura Clements M.D. Narrative 10/28/2024 11:18 AM MC KAY MACHINE OPERATOR EXAMINATION: RIGHT BREAST CORE BIOPSY UTILIZING SONOGRAPHIC [...] entire procedure. Dr. Salinas Coronado MD (diagnostic resident inspector) also participated in this examination. Procedure Note [...] entire procedure. Dr. Salinas Coronado MD (diagnostic resident inspector) also participated in this examination. IMPRESSION: Successful [...] Guided Breast Biopsy Right (10/28/2024 11:04 AM MC KAY MACHINE OPERATOR) Anatomical Region Laterality Modality Breast Right Ultrasound 10/28/2024 11:1 4 AM MC KAY MACHINE OPERATOR Addenda Addendum by Laura Clements MD on 10/29/2024 1:35 PM MC KAY MACHINE OPERATOR ADDENDUM: Pathology from biopsy of the right [...] Laura Clements M.D. Impressions 10/28/2024 11:18 AM MC KAY MACHINE OPERATOR Successful core needle biopsy of the RIGHT [...] Laura Clements M.D. Narrative 10/28/2024 11:18 AM MC KAY MACHINE OPERATOR EXAMINATION: RIGHT BREAST CORE BIOPSY UTILIZING SONOGRAPHIC [...] entire procedure. Dr. Salinas Coronado MD (diagnostic resident inspector) also participated in this examination. Procedure Note [...] entire procedure. Dr. Salinas Coronado MD (diagnostic resident inspector) also participated in this examination. IMPRESSION: Successful [...] it. Electronically signed by: Laura Clements M.D. Ashish Rodrigues NP IMG MAMMO PROCEDURES Edited Res ult - Final * Surgical pathology (10/28/2024 10:52 AM MC KAY MACHINE OPERATOR) Tissue specimen (specimen) (Breast biopsy, needle core) 10/28/2024 10:52 AM MC KAY MACHINE OPERATOR Comment:right breast 7:00 3 cm/fn, ultrasound biopsy, birads 4a Narrative PATHOLOGY [facility] - 10/29/2024 10:17 AM MC KAY MACHINE OPERATOR EPIC results best viewed via link to PDF [facility] [place] [address] Note to Patients: This report may contain [...] Gender: F : 1990 (Age: 34) Address: [address] [place] [id number] Hospital #: [id number] Taken:10/28/2024 Received:10/28/2024 Reported: 10/29/2024 Patient Type: [facility] Ancillary Service: UNKNOWN Location: Physician(s): Unknown [...] Surgical Pathology and Flow Cytometry Departments at [facility] as part of an ongoing quality technician program and in compliance with federally mandated [...] Surgical Pathology and Flow Cytometry Departments of [facility]. It has not been cleared or approved by the U. S. Food and Drug Administration. IMAGES AND SCANNED DOCUMENTS, IF INCLUDED, ONLY VIEWABLE IN PDF VERSION OF REPORT Ashish Rodrigues NP LAB PATHOLOGY ORDERABLES Final Result PATHOLOGY [facility] 3rd Floor [place], [place] [phone] * US Breast Right Limited (10/21/2024 3:30 PM MC KAY MACHINE OPERATOR) Anatomical Region Laterality Modality Breast Right Ultrasound 10/21/2024 4:06 PM MC KAY MACHINE OPERATOR Impressions 10/21/2024 4:37 PM MC KAY MACHINE OPERATOR Therefore oval lobulated masses in the right [...] results of the dominant mass. Dr. Faisal Gomez discussed the above findings and recommendations with the patient. The patient is scheduled to return to the [facility] for biopsy on 11/02/2024 at 2:15 PM. This facility will contact the referring clinician's office for an order. Dictated by: Faisal Gomez M.D. The radiology attending physician has personally reviewed this study, and had reviewed and/or edited this written report and agrees with it. Electronically signed by: Breanna Sawyer M.D. Narrative 10/21/2024 4:37 PM MC KAY MACHINE OPERATOR EXAMINATION: BILATERAL DIGITAL DIAGNOSTIC MAMMOGRAM INCLUDING CAD [...] 0.4 x 0.6 cm. Procedure Note Breanna Saweyr MD - 10/21/2024 EXAMINATION: BILATERAL DIGITAL DIAGNOSTIC [...] results of the dominant mass. Dr. Faisal Gomez discussed the above findings and recommendations with the patient. The patient is scheduled to return to the [facility] for biopsy on 11/02/2024 at 2:15 PM. This facility will contact the referring clinician's office for an order. Dictated by: Faisal Gomez M.D. The radiology attending physician has personally reviewed this study, and had reviewed and/or edited this written report and agrees with it. Electronically signed by: Breanna Sawyer M.D. us Ashish Rodrigues NP IMG MAMMO PROCEDURES Final Resu lt * Diagnostic Mammogram Bilateral W Ignacio (10/21/2024 2:25 PM MC KAY MACHINE OPERATOR) Anatomical Region Laterality Modality Breast Bilateral Mammography 10/21/2024 4:06 PM MC KAY MACHINE OPERATOR Impressions 10/21/2024 4:37 PM MC KAY MACHINE OPERATOR Therefore oval lobulated masses in the right [...] results of the dominant mass. Dr. Faisal oGmez discussed the above findings and recommendations with the patient. The patient is scheduled to return to the [facility] for biopsy on 11/02/2024 at 2:15 PM. This facility will contact the referring clinician's office for an order. Dictated by: Faisal Gomez M.D. The radiology attending physician has personally reviewed this study, and had reviewed and/or edited this written report and agrees with it. Electronically signed by: Breanna Sawyer M.D. Narrative 10/21/2024 4:37 PM MC KAY MACHINE OPERATOR EXAMINATION: BILATERAL DIGITAL DIAGNOSTIC MAMMOGRAM INCLUDING CAD [...] results of the dominant mass. Dr. Faisal Gomez discussed the above findings and recommendations with the patient. The patient is scheduled to return to the [facility] for biopsy on 11/02/2024 at 2:15 PM. This facility will contact the referring clinician's office for an order. Dictated by: Faisal Gomez M.D. The radiology attending physician has personally reviewed this study, and had reviewed and/or edited this written report and agrees with it. Electronically signed by: Breanna Sawyer M.D. Ashish Rodrigues NP IMG MAMMO PROCEDURES Final Resu lt * Surgical pathology (09/24/2024 12:00 AM MC KAY MACHINE OPERATOR) Skin, shave biopsy 09/24/2024 09/29/2024 6:33 AM MC KAY MACHINE OPERATOR Narrative 09/30/2024 2:12 PM MC KAY MACHINE OPERATOR EPIC results best viewed via link to PDF [facility] - Dermatopathology [facility] [address] [place] [address]., [address], [place] [address] [email or web address] Note to Patients: This report may [...] 09/30/2024 Submitting Physician Information: Mojgan Molina D.O. [address] [place] [address], DERMATOPATHOLOGY REPORT RESULTS DIAGNOSIS: SKIN, LEFT THIGH, [...] dh/mxf ICD-9 A; ZSD.407 Clerical Data A; 95690 The characteristics of special, immunohistochemical, and immunofluorescence stains and in-situ hybridization tests performed by the [facility]ermat[facility] were deemed acceptable in ongoing quality technician measures and in compliance with regulations drawn from the Clinical Laboratory Improvement Act yr7629 (CLIA '88). Control reactions for all stains performed were deemed adequate and appropriate by a pathologist prior to evaluation of patient tissue. Some diagnoses were rendered with the assistance of laboratory-developed tests utilizing analyte-specific reagents; the performance characteristic of these tests were determined by [facility] and are not cleared or approved by the [place] Food an Drug administration. Laboratory developed test may only be performed in a facility that is certified by the [facility] as a high-complexity laboratory under CLIA '88. These tests are used for clinical purposes and are not investigational. Mojgan Molina DO LAB PATHOLOGY ORDERABLES Final Result from Last [address] [place] [address] [facility] [employer] Address: [address] [address] [employer] [facility] [employer] Address: [facility] [id number] [place]quist [address] Care Teams Shoe Handler Relationship Specialty Start Date End Date Greer Bowers NP [address] [place], [place] [phone] PCP - General Internal Medicine 10/19/24 Ashish Rodrigues NP [address] [place] [address] Nurse Practitioner Nurse Practitioner 10/21/24
--- OUTSIDE RECORDS SUMMARY | 2024-12-23 11:30 | XMS_ITS | Encounter Summary ---
Author Organization [facility] Address [address] [place] [address] Care Team Providers Care Dialysis Clinical Manager Name Role Phone Unavailable Primary Care Provider Unavailabl e Encounter Details Date Type Department Care Team (Late st Contact Info) Description 05/30/2020 Lab Requisition [facility] DermPath Lab [address] 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 Gender Identity Not on file Sexual Orientation Not on file documented as of this encounter Plan of Treatment Not on file documented as of this encounter Procedures Procedure Name Priority Date/Time Associated Diagnosis Comments DERMATOPATHOLOGY Routine 05/26/2020 12:0 0 AM CDT documented in this encounter Results * DERMATOPATHOLOGY (05/26/2020 12:00 AM CDT) Case Report Dermatopathology Report Case: [id number] Authorizing Provider: Lashawn Bowers MD Collected: 05/26/2020 12:00 AM Ordering Location: [facility] DermPath Lab Received: 05/30/2020 11:40 AM Pathologist: Jonathan Mark MD Specimen: Skin, left chest 0 1:00 PM CDT DERMATOPATHOLOGY LABORATORY Final Diagnosis Specimen A. 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 0 1:00 PM CDT DERMATOPATHOLOGY LABORATORY Gross Description Specimen A: Received is one formalin filled container labeled with the patient's name and designated left chest. The specimen consists of a shave measuring [id number]. Jar 0. 0 1:00 PM CDT DERMATOPATHOLOGY LABORATORY Microscopic Description Specimen A. SKIN, left chest: This is a compound nevus. There is architectural disorder characterized by a lentiginous proliferation of melanocytes along the dermal-epidermal junction, highlighted by MART-1/Melan-A immunohistochemical staining. There is underlying fibroplasia of the papillary dermis. The intradermal component is bland in appearance and matures with depth. Original and deeper sections were reviewed. (Compound Carl's Nevus or Compound Dysplastic Nevus) 0 1:00 PM CDT DERMATOPATHOLOGY LABORATORY Disclaimer An external and internal positive and negative controls are appropriate for the histochemical, immunohistochemical and immunofluorescence stain(s) in this case (if any), except where stated explicitly. The performance characteristics of the stain(s) cited in this report were developed and its performance characteristic determined by the Dermatopathology Laboratory at [facility], directed by Dr. Alee Mark. These tests need not be, and therefore are not, approved by the [place] Food and Drug Administration. The tests are used for clinical purposes. Billing Codes Specimen Charges Stain Charges 29382 1 90303 1 0 1:00 PM CDT DERMATOPATHOLOGY LABORATORY Embedded Images 0 1:00 PM CDT DERMATOPATHOLOGY LABORATORY Pathology/Cytolog y TISSUE SPECIMEN FROM SKIN / Unknown 05/26/2020 05/30/2020 11:40 AM CDT Lashawn Bowers MD LAB - PATHOLOGY/CYTOLOGY OR DERABLES Final Result DERMATOPATHOLOGY LABORATORY [facility] - Department of Dermatology [address], [address] [phone] documented in this encounter Visit Diagnoses Not on filedocumented in this encounter
--- OUTSIDE RECORDS SUMMARY | 2024-12-23 11:30 | XMS_ITS | Encounter Summary ---
Author Organization [facility] Address [address] [facility] [place] [address] Care Team Providers Care Senior Sas Programmer Name Role Phone Unavailable Primary Care Provider Unavailabl e Encounter Details Date Type Department Care Team (Late st Contact Info) Description 01/12/2020 Lab Requisition [facility] DermPath Lab [address] [facility], [facility] [place] [address] Mojgan Molina DO [address] [facility] 3 [place] [address] Social History Tobacco Use Types Packs/Day Years Used Date Smoking Tobacco: Never Assessed Comments Unknown Sex and Gender Information Value Date Recorded Sex Assigned at Not on file Legal Sex Female 6:06 PM PRIVATE EYE Gender Identity Not on file Sexual Orientation Not on file documented as of this encounter Plan of Treatment Not on file documented as of this encounter Procedures Procedure Name Priority Date/Time Associated Diagnosis Comments DERMATOPATHOLOGY Routine 01/11/2020 12:0 0 AM CDT documented in this encounter Results * DERMATOPATHOLOGY (01/11/2020 12:00 AM CDT) Case Report Dermatopathology Report Case: [id number] Authorizing Provider: Mojgan Molina DO Collected: 01/11/2020 12:00 AM Ordering Location: [facility] DermPath Lab Received: 01/12/2020 10:31 AM Pathologist: Anahy aZmudio MD Specimen: Skin, mid low back 0 12:42 PM CDT DERMATOPATHOLOGY LABORATORY Final Diagnosis Specimen A. SKIN, mid low back: DERMAL SCAR RESIDUAL MELANOCYTIC PROLIFERATION NOT IDENTIFIED (L90.5) 0 12:42 PM CDT DERMATOPATHOLOGY LABORATORY Clinical History Compound melanocytic proliferation, bx proven. Previous Bx: [id number]. 0 12:42 PM CDT DERMATOPATHOLOGY LABORATORY Gross Description Specimen A: Received is one formalin filled container labeled with the patient's name and designated mid low back.The specimen consists of an ellipse measuring [id number] and is oriented with the notch at the 12 o'clock position labeled on the requisition as right tip. The 12 to 6 o'clock margin is inked green. The 6 o'clock to 12 o'clock margin is inked black. The 12 o'clock tip is submitted in cassette 1. The 6 o'clock tip is submitted in cassette 2. The remainder of the ellipse is serially sectioned and submitted in cassettes 3-4. Jar 0. 0 12:42 PM CDT DERMATOPATHOLOGY LABORATORY Microscopic Description Specimen A. SKIN, mid low back: There are fibroblasts and collagen bundles oriented parallel to the skin surface. There are elongated blood vessels, some of which are oriented perpendicular to the skin surface. No residual melanocytic proliferation is identified. 0 12:42 PM CDT DERMATOPATHOLOGY LABORATORY Disclaimer An external and internal positive and negative controls are appropriate for the histochemical, immunohistochemical and immunofluorescence stain(s) in this case (if any), except where stated explicitly. The performance characteristics of the stain(s) cited in this report were developed and its performance characteristic determined by the Dermatopathology Laboratory at [facility], directed by Dr. Alee Mark. These tests need not be, and therefore are not, approved by the [place] Food and Drug Administration. The tests are used for clinical purposes. Billing Codes Specimen Charges Stain Charges 72704 1 0 12:42 PM CDT DERMATOPATHOLOGY LABORATORY Embedded Images 0 12:42 PM CDT DERMATOPATHOLOGY LABORATORY Pathology/Cytolog y TISSUE SPECIMEN FROM SKIN / Unknown 01/11/2020 01/12/2020 10:31 AM CDT us Mojgan Molina DO LAB - PATHOLOGY/CYTOLOGY ORDERABLES Final Result DERMATOPATHOLOGY LABORATORY [facility] - Department of Dermatology [address] [facility], 5th Floor Lab [address] [phone] documented in this encounter Visit Diagnoses Not on filedocumented in this encounter
--- OUTSIDE RECORDS SUMMARY | 2024-12-23 11:30 | XMS_ITS | Clinical Summary ---
Author Organization [facility] Address [address] [place] [address] Care Team Providers Care Propeller Mechanic Name Role Phone Unavailable Primary Care Provider Unavailabl e Source Comments [facility],non-owned Affiliates and Associated Physician Practices is amultiple site organization consisting of ambulatory clinics and hospital sitesin [place], [place] and [place]. This disclosure is being madepursuant to the Care Everywhere program and may not contain all information available regarding this patient. 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 Gender Identity Not on file Sexual Orientation Not on file Plan of Treatment Health Maintenance Due Date Last Done Comments PAP SMEAR 1990 HIV SCREENING 2007 HEPATITIS C SCREENING 10/02/2010 DTAP/TDAP/TD VACCINES (1 - Tdap) 2011 HEPATITIS B VACCINE (1 of 3 - 19+ 3-dose series) 2011 COVID-19 VACCINE (1 - 2023-2 5 season) 2024 DEPRESSION SCREENING 09/02/2024 INFLUENZA VACCINE (Season Ended) 2025 ZOSTER VACCINE (1 of 2) 2042 HIB VACCINE Aged Out No longer eligi ble based on patient's age to complete this topic HPV VACCINE Aged Out No longer eligi ble based on patient's age to complete this topic MENINGOCOCCAL (Group B) VACC INE SHARED DECISION-MAKING Aged Out No longer eligibl e based on patient's age to complete this topic MENINGOCOCCAL GROUPS A/C/Y/W VACCINE Aged Out No longer eligible b ased on patient's age to complete this topic PNEUMOCOCCAL VACCINE Aged Out No long er eligible based on patient's age to complete this topic Insurance [employer]
--- OUTSIDE RECORDS SUMMARY | 2024-12-23 11:30 | XMS_ITS | Encounter Summary ---
Author Organization [facility] Address [address] [facility] [place] [address] Care Team Providers Care Supervisor Machining Name Role Phone Unavailable Primary Care Provider Unavailabl e Encounter Details Date Type Department Care Team (Late st Contact Info) Description 09/24/[address] [facility] - DermPath Lab [address] [facility], [place] [address] Mojgan Molina, [address] [facility] 3 [place] [address] Social History Tobacco Use Types Packs/Day Years Used Date Smoking Tobacco: Never Assessed Comments Unknown Sex and Gender Information Value Date Recorded Sex Assigned at Not on file Legal Sex Female 6:06 PM CLINICAL INFORMATICS SPEC Gender Identity Not on file Sexual Orientation Not on file documented as of this encounter Plan of Treatment Scheduled Orders Name Type Priority Associated Diagnoses Orde r Schedule DERMATOPATHOLOGY Pathology Cytology Routine Ordered: 09/24/2024 documented as of this encounter Visit Diagnoses Not on filedocumented in this encounter
--- OUTSIDE RECORDS SUMMARY | 2024-12-23 11:30 | XMS_ITS | Clinical Summary ---
Author Organization [facility] Address [address] [place] [address] Care Team Providers Care Envelope Maker Name Role Phone Dalton Dukes MD Primary Care Provider Allergies No known active allergies Medications ondansetron 4 MG disintegrating tablet Take 1 tablet (4 mg total) by mouth every 8 (eight) hours as needed for Nausea. 20 tablet 0 Active tamsulosin 0.4 MG Cap Take 1 capsule (0.4 mg total) by mouth daily. 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 Legal Sex Female 7:08 PM CDT Gender Identity Not on file Sexual Orientation Not on file Last Filed Vital Signs Vital Sign Reading Time Taken Comments Blood Pressure 116/86 11/20/2019 9:18 AM CDT Pulse 66 11/20/2019 9:18 AM CDT Temperature 36.9 C (98.4 F) 11/20/2019 9:18 AM CDT Respiratory Rate 16 11/20/2019 9:18 AM CDT Oxygen Saturation 99% 11/20/2019 9:18 AM CDT Inhaled Oxygen Concentration - - Weight 59 kg (130 lb) 11/20/2019 9:18 AM CDT Height 160 cm (5' 3 ) 11/20/2019 9:18 AM CDT Body Mass Index 23.03 11/20/2019 9:18 AM CDT Plan of Treatment Health Maintenance Due Date Last Done Comments Cervical Cancer Screening Pa p Smear (Age 30 to 64) Every 3 Years 1992 Annual Physical 1995 Hepatitis C 2010 Hepatitis B Vaccines (1 of 3 - 19+ 3-dose series) 2011 Cervical Cancer Screening Pa p with HPV Testing (Age 30 to 64) Every 5 Years 2022 Cervical Cancer Screening with HPV 2022 COVID-19 Vaccine (1 - 2023-2 5 season) 2024 DTaP, Tdap and Td Vaccines ( 2 - Td or Tdap) 10/26/2026 10/26/2016 HPV Vaccines Aged Out No longer eligi ble based on patient's age to complete this topic Meningococcal B Vaccine Aged Out No l onger eligible based on patient's age to complete this topic Meningococcal Vaccine Aged Out No mio cecilia eligible based on patient's age to complete this topic Pneumococcal Vaccine: Pediat rics (0 to 5 Years) and At-Risk Patients (6 to 49 Years) Aged Out No longer eligi ble based on patient's age to complete this topic RSV Immunizations Under 20 Months Aged Out No longer eligible based on patient's age to complete this topic Insurance Care Teams Envelope Maker Relationship Specialty [place] [address] [place] [address] PCP - General FAMILY PRACTICE 11/20/19
[2024-12-23 20:03] LABS: Basophils Absolute Auto 0.1 K/mm3 (0.0-0.1); Basophils Percent Auto 0.8 % (0.2-1.2); Eosinophils Absolute Auto 0.1 K/mm3 (0-0.3); Eosinophils Percent Auto 1.1 % (0-4.4); Hematocrit 39.1 % (37.0-47.0); Hemoglobin 12.4 g/dL (12.0-15.0); Immature Granulocyte Absolute 0.01 K/mm3 (0.00-0.031); Immature Granulocyte Percent A 0.2 % (0-0.5); Lymphocytes Absolute Auto 1.62 K/mm3 (0.9-3.2); Lymphocytes Percent Auto 24.8 % (18.3-44.2); Mean Corpuscular HGB Conc 31.7 g/dl (32-36); Mean Corpuscular Hemoglobin 30.2 pg (26-34); Mean Corpuscular Volume 95.4 fl (80-100); Mean Platelet Volume 11.2 fl (7.4-10.4); Monocytes Absolute Auto 0.5 K/mm3 (0.1-0.6); Neutrophils Absolute Auto 4.3 K/mm3 (1.3-6.7); Neutrophils Percent Auto 65.1 % (45.5-73.1); Platelet Count Result 241 k/mm3 (150-375); White Blood Count 6.5 K/mm3 (4.5-10.0)
== END 2024-12-23 10:09 | disposition home or self-care (01) ==
LOC: ANHGOSHLAB 10:09
PROVIDERS: PCP Nurse Practitioner; Visit Provider Nurse Practitioner
DX: K64.9 Unspecified hemorrhoids (principal); K59.00 Constipation, unspecified
CPT/HCPCS: 36415; 85025

== ENCOUNTER 2024-12-23 13:58 | Outpatient (CLI) | payer OTHER, SELFPAY ==
--- NOTE | ~2024-12-23 | CT_ITS ---
CT abdomen pelvis w con Ordering provider: Greer Bowers NP History: 34 years Female with . R10.9 - Unspecified abdominal pain . Comparison: None. Technique: CT abdomen and pelvis with IV and without oral contrast. Automated exposure control and it erative reconstruction technique were employed. The dose-length product was 326.30 mGy-cm. 100 mL Omn ipaque 350 was given IV. Findings: VISUALIZED LOWER CHEST: Normal. UPPER ABDOMINAL ORGANS: Liver: Normal. Gallbladder: Normal. Spleen: Normal. Stomach/duodenum: Normal. Pancreas: Normal. Adrenals: Normal. Kidneys: 3 mm or Stone in the left kidney lower pole. Multiple tiny cysts in the right kidney. PELVIC ORGANS: The bladder is underfilled. Left ovarian cyst measuring 2.1 cm. BOWEL AND MESENTERY: Colon: No evidence of diverticulitis. Fecal material is loaded in the colon.. Normal appendix. Small Bowel: Normal. No obstruction. Peritoneum/mesentery: No free air or free fluid. No mesenteric lymphadenopathy. Small mesenteric lymp h nodes. RETROPERITONEUM: Normal aorta. No retroperitoneal lymphadenopathy. MUSCULOSKELETAL: Superficial soft tissues: Left inguinal lymph node is seen measuring 1.1 cm. Otherwise, The superfici al soft tissues are normal. Bones: Normal spine. IMPRESSION: 1. No evidence of appendicitis, diverticulitis or intestinal obstruction. 2. Left kidney stone. 3. Constipation. Reviewed, dictated and finalized at location A.
--- OUTSIDE RECORDS SUMMARY | 2024-12-23 15:58 | XMS_ITS | Clinical Summary ---
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
--- OUTSIDE RECORDS SUMMARY | 2024-12-23 15:58 | XMS_ITS | Encounter Summary ---
Author Organization [facility] Address [address] [facility] [place] [address] Care Team Providers Care Stock Parts Fabricator Name Role Phone Unavailable Primary Care Provider Unavailabl e Encounter Details Date Type Department Care Team (Late st Contact Info) Description 09/24/2024 Lab Requisition [facility] - DermPath Lab [address] [facility], [place] [address] Mojgan Molina, [address] [facility] [address] [place] [address] Social History Tobacco Use Types Packs/Day Years Used Date Smoking Tobacco: Never Assessed Comments Unknown Sex and Gender Information Value Date Recorded Sex Assigned at Not on file Legal Sex Female 6:06 PM DIRECTOR OF PULMONARY 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
--- OUTSIDE RECORDS SUMMARY | 2024-12-23 15:58 | XMS_ITS | Clinical Summary ---
Author Organization [facility] Address [address] [place] [address] Care Team Providers Care Puttying And Calking Supervisor Name Role Phone Greer Bowers NP Primary Care Provider [phone] Ashish Rodrigues WINDOW INSTALLATION SUBCONTRACTOR Unavailable Encounters Date Type Department Care Team Description 10/29/2024 Telephone [facility] Breast [facility] [address] [place] [phone] Mey Barr RN Test Results (Right breast biopsy path results from 10/28/24) 10/28/2024 10:57 AM FISHING LURE ASSEMBLER - 10/28/2024 11:59 PM FISHING LURE ASSEMBLER Hospital Encounter [facility] [address] [place] [address] Abnormal mammogram Discharge Disposition: Discharge to home or self care 10/28/2024 10:12 AM FISHING LURE ASSEMBLER - 10/28/2024 11:59 PM FISHING LURE ASSEMBLER Hospital Encounter [facility] [address] [place] [address] Abnormal mammogram Discharge Disposition: Discharge to home or self care 10/21/2024 1:32 PM FISHING LURE ASSEMBLER - 10/21/2024 11:59 PM FISHING LURE ASSEMBLER Hospital Encounter [facility] [address] [place] [id number] Unspecified lump in the right breast, upper outer quadrant Discharge Disposition: Discharge to home or self care 10/21/2024 1:32 PM FISHING LURE ASSEMBLER - 10/21/2024 11:59 PM FISHING LURE ASSEMBLER Hospital Encounter [facility] [address] [place] [address] Unspecified lump in the right breast, upper outer quadrant Discharge Disposition: Discharge to home or self care 09/24/2024 Orders Only [facility] [address] [place] [address] Mojgan Molina DO from Last 3 Months [...] this topic Medical Devices Implanted Type Area Match Up Worker Device Identifier Shelf Expiration Date Model / Serial / Lot Bard Peripheral Vascular Ultraclip Bard 17ga 10cm 2 Trigger Permanent Ultrasound [id number] - [id number] Implanted:Qty: 1 on 10/28/2024 by Salinas Coronado MD at [facility] Right: Breast Bard Peripheral Vascular [id number] / / Procedures Procedure Name Priority Date/Time Associated Diagnosis Comments IGNACIO POST CLIP PLACEMENT RIGHT Schedule Routine, Read Routine (OP Routine) 10/28/2024 11:12 AM FISHING LURE ASSEMBLER Abnormal mammogram US GUIDED BREAST BIOPSY RIGHT Schedule Routine, Read Routine (OP Routine) 10/28/2024 11:04 AM FISHING LURE ASSEMBLER Abnormal mammogram SURGICAL PATHOLOGY Routine 10/28/2024 10 :52 AM FISHING LURE ASSEMBLER Abnormal mammogram US BREAST RIGHT LIMITED Schedule Routine, Read Routine (OP Routine) 10/21/2024 3:30 PM FISHING LURE ASSEMBLER Unspecified lump in the right breast, upper outer quadrant DIAGNOSTIC MAMMOGRAM BILATERAL W IGNACIO Schedule Routine, Read Routine (OP Routine) 10/21/2024 2:25 PM FISHING LURE ASSEMBLER Unspecified lump in the right breast, upper outer quadrant SURGICAL PATHOLOGY Routine 09/24/2024 12 :00 AM FISHING LURE ASSEMBLER from Last 3 Months Results * Ignacio Post Clip Placement Right (10/28/2024 11:12 AM FISHING LURE ASSEMBLER) Anatomical Region Laterality Modality Breast Right Mammography 10/28/2024 11:1 4 AM FISHING LURE ASSEMBLER Addenda Addendum by Laura Clements MD on 10/29/2024 1:35 PM FISHING LURE ASSEMBLER ADDENDUM: Pathology from biopsy of the right [...] Laura Clements M.D. Impressions 10/28/2024 11:18 AM FISHING LURE ASSEMBLER Successful core needle biopsy of the RIGHT [...] Laura Clements M.D. Narrative 10/28/2024 11:18 AM FISHING LURE ASSEMBLER EXAMINATION: RIGHT BREAST CORE BIOPSY UTILIZING SONOGRAPHIC [...] entire procedure. Dr. Salinas Coronado MD (diagnostic radiology nurse) also participated in this examination. Procedure Note [...] entire procedure. Dr. Salinas Coronado MD (diagnostic radiology nurse) also participated in this examination. IMPRESSION: Successful [...] Guided Breast Biopsy Right (10/28/2024 11:04 AM FISHING LURE ASSEMBLER) Anatomical Region Laterality Modality Breast Right Ultrasound 10/28/2024 11:1 4 AM FISHING LURE ASSEMBLER Addenda Addendum by Laura Clements MD on 10/29/2024 1:35 PM FISHING LURE ASSEMBLER ADDENDUM: Pathology from biopsy of the right [...] will be discussed with the patient by [facility] or referring provider staff and will be separately documented in the medical record. Electronically signed by: Laura Clements M.D. Impressions 10/28/2024 11:18 AM FISHING LURE ASSEMBLER Successful core needle biopsy of the RIGHT [...] Laura Clements M.D. Narrative 10/28/2024 11:18 AM FISHING LURE ASSEMBLER EXAMINATION: RIGHT BREAST CORE BIOPSY UTILIZING SONOGRAPHIC [...] entire procedure. Dr. Salinas Coronado MD (diagnostic radiology nurse) also participated in this examination. Procedure Note [...] entire procedure. Dr. Salinas Coronado MD (diagnostic radiology nurse) also participated in this examination. IMPRESSION: Successful [...] Final * Surgical pathology (10/28/2024 10:52 AM FISHING LURE ASSEMBLER) Tissue specimen (specimen) (Breast biopsy, needle core) 10/28/2024 10:52 AM FISHING LURE ASSEMBLER Comment:right breast 7:00 3 cm/fn, ultrasound biopsy, birads 4a Narrative PATHOLOGY [facility] - 10/29/2024 10:17 AM FISHING LURE ASSEMBLER EPIC results best viewed via link to PDF [facility] Clotilde Seymour [facility] [place] [address] Note to Patients: This report may contain [...] Gender: F : 1990 (Age: 34) Address: [address] [address] Hospital #: [id number] Taken:10/28/2024 Received:10/28/2024 Reported: 10/29/2024 Patient Type: [facility] Ancillary Service: UNKNOWN Location: Physician(s): Unknown [...] Surgical Pathology and Flow Cytometry Departments at [facility] as part of an ongoing associate quality engineer program and in compliance with federally mandated [...] Surgical Pathology and Flow Cytometry Departments of [facility]. It has not been cleared or approved by the [place]. S. Food and Drug Administration. IMAGES AND SCANNED DOCUMENTS, IF INCLUDED, ONLY VIEWABLE IN PDF VERSION OF REPORT Ashish Rodrigues NP LAB PATHOLOGY ORDERABLES Final Result PATHOLOGY [facility] 3rd Floor [place], [place] [phone] * US Breast Right Limited (10/21/2024 3:30 PM FISHING LURE ASSEMBLER) Anatomical Region Laterality Modality Breast Right Ultrasound 10/21/2024 4:06 PM FISHING LURE ASSEMBLER Impressions 10/21/2024 4:37 PM FISHING LURE ASSEMBLER Therefore oval lobulated masses in the right [...] patient is scheduled to return to the [facility] for biopsy on 11/02/2024 at 2:15 PM. This facility will contact the referring clinician's office for an order. Dictated by: Faisal Ling M.D. The radiology attending physician has personally reviewed this study, and had reviewed and/or edited this written report and agrees with it. Electronically signed by: Breanna Sawyer M.D. Narrative 10/21/2024 4:37 PM FISHING LURE ASSEMBLER EXAMINATION: BILATERAL DIGITAL DIAGNOSTIC MAMMOGRAM INCLUDING CAD [...] patient is scheduled to return to the [facility] for biopsy on 11/02/2024 at 2:15 PM. [...] Mammogram Bilateral W Ignacio (10/21/2024 2:25 PM FISHING LURE ASSEMBLER) Anatomical Region Laterality Modality Breast Bilateral Mammography 10/21/2024 4:06 PM FISHING LURE ASSEMBLER Impressions 10/21/2024 4:37 PM FISHING LURE ASSEMBLER Therefore oval lobulated masses in the right [...] patient is scheduled to return to the [facility] for biopsy on 11/02/2024 at 2:15 PM. This facility will contact the referring clinician's office for an order. Dictated by: Faisal Ling M.D. The radiology attending physician has personally reviewed this study, and had reviewed and/or edited this written report and agrees with it. Electronically signed by: Breanna Sawyer M.D. Narrative 10/21/2024 4:37 PM FISHING LURE ASSEMBLER EXAMINATION: BILATERAL DIGITAL DIAGNOSTIC MAMMOGRAM INCLUDING CAD [...] patient is scheduled to return to the [facility] for biopsy on 11/02/2024 at 2:15 PM. This facility will contact the referring clinician's office for an order. Dictated by: Faisla Ling M.D. The radiology attending physician has personally reviewed this study, and had reviewed and/or edited this written report and agrees with it. Electronically signed by: Breanna Sawyer M.D. us Ashish Lilia WINDOW INSTALLATION SUBCONTRACTOR IMG MAMMO PROCEDURES Final Resu lt * Surgical pathology (09/24/2024 12:00 AM FISHING LURE ASSEMBLER) Skin, shave biopsy 09/24/2024 09/29/2024 6:33 AM FISHING LURE ASSEMBLER Narrative 09/30/2024 2:12 PM FISHING LURE ASSEMBLER EPIC results best viewed via link to PDF [facility] [address] [place] [address], [address], [place] [address] [email or web address] Note to Patients: This report may [...] 09/30/2024 Submitting Physician Information: Mojgan Molina D.O. [address] [place] [address], [place] [address], DERMATOPATHOLOGY REPORT RESULTS DIAGNOSIS: SKIN, [...] dh/mxf ICD-9 A; ZSD.407 Clerical Data A; 00388 The characteristics of special, immunohistochemical, and immunofluorescence stains and in-situ hybridization tests performed by the [facility] were deemed acceptable in ongoing associate quality engineer measures and in compliance with regulations drawn from the Clinical Laboratory Improvement Act gi0107 (CLIA '88). Control reactions for all stains performed were deemed adequate and appropriate by a pathologist prior to evaluation of patient tissue. Some diagnoses were rendered with the assistance of laboratory-developed tests utilizing analyte-specific reagents; the performance characteristic of these tests were determined by [facility] and are not cleared or approved by the [place] Food an Drug administration. Laboratory developed test may only be performed in a facility that is certified by the [facility] as a high-complexity laboratory under CLIA '88. These tests are used for clinical purposes and are not investigational. Mojgan Molina DO LAB PATHOLOGY ORDERABLES Final Result from Last 3 Months [facility] [employer] [facility] Address: [facility] [address] [place] [address] [employer] [facility] [employer] Address: [facility] [id number] [place] [address] Care Teams Puttying And Calking Supervisor Relationship Specialty Start Date End Date Greer Bowers NP [address] [place] [address] PCP - General Internal Medicine 10/19/24 Ashish Rodrigues NP [address] [place] [address] Nurse Practitioner Nurse Practitioner 10/21/24
--- OUTSIDE RECORDS SUMMARY | 2024-12-23 15:58 | XMS_ITS | Encounter Summary ---
Author Organization [facility] Address [address] [facility] [place] [address] Care Team Providers Care Nutter Up Name Role Phone Unavailable Primary Care Provider Unavailabl e Encounter Details Date Type Department Care Team (Late st Contact Info) Description 05/30/2020 Lab Requisition [facility] DermPath Lab [address] [facility], [place] [address] Lashawn Bowers MD [address] [facility] 3 [place] [address] Social History Tobacco Use Types Packs/Day Years Used Date Smoking Tobacco: Never Assessed Comments Unknown Sex and Gender Information Value Date Recorded Sex Assigned at Not on file Legal Sex Female 6:06 PM MODEL AND MOLD MAKER PLASTER Gender Identity Not on file Sexual Orientation Not on file documented as of this encounter Plan of Treatment Not on file documented as of this encounter Procedures Procedure Name Priority Date/Time Associated Diagnosis Comments DERMATOPATHOLOGY Routine 05/26/2020 12:0 0 AM CDT documented in this encounter Results * DERMATOPATHOLOGY (05/26/2020 12:00 AM CDT) Case Report Dermatopathology Report Case: [id number] Authorizing Provider: Lashawn Bowers MD Collected: 05/26/2020 12:00 AM Ordering Location: [facility] DermPath Lab Received: 05/30/2020 11:40 AM Pathologist: [...] The specimen consists of a shave measuring [id number]. Jar 0. 0 1:00 PM CDT DERMATOPATHOLOGY [...] characteristic determined by the Dermatopathology Laboratory at [facility], directed by Dr. Alee Mark. These tests need not be, and therefore are not, approved by the [place] Food and Drug Administration. The tests are used for clinical purposes. Billing Codes Specimen Charges Stain Charges 19471 1 01043 1 0 1:00 PM CDT DERMATOPATHOLOGY LABORATORY Embedded Images 0 1:00 PM CDT DERMATOPATHOLOGY LABORATORY Pathology/Cytolog y TISSUE SPECIMEN FROM SKIN / Unknown 05/26/2020 05/30/2020 11:40 AM CDT Lashawn Bowers MD LAB - PATHOLOGY/CYTOLOGY OR DERABLES Final Result DERMATOPATHOLOGY LABORATORY [facility] - Department of Dermatology [address], [address] [phone] documented in this encounter Visit Diagnoses Not on filedocumented in this encounter
--- OUTSIDE RECORDS SUMMARY | 2024-12-23 15:58 | XMS_ITS | Encounter Summary ---
Author Organization [facility] Address [address] [facility] [place] [address] Care Team Providers Care Cane Stripper Name Role Phone Unavailable Primary Care Provider Unavailabl e Encounter Details Date Type Department Care Team (Late st Contact Info) Description 01/12/2020 Lab Requisition [facility] DermPath Lab [address] [facility] [place] [address] Mojgan Molina DO [address] [facility] 3 [place] [address] Social History Tobacco Use Types Packs/Day Years Used Date Smoking Tobacco: Never Assessed Comments Unknown Sex and Gender Information Value Date Recorded Sex Assigned at Not on file Legal Sex Female 6:06 PM SUPPORT STAFF Gender Identity Not on file Sexual Orientation Not on file documented as of this encounter Plan of Treatment Not on file documented as of this encounter Procedures Procedure Name Priority Date/Time Associated Diagnosis Comments DERMATOPATHOLOGY Routine 01/11/2020 12:0 0 AM CDT documented in this encounter Results * DERMATOPATHOLOGY (01/11/2020 12:00 AM CDT) Case Report Dermatopathology Report Case: [id number] Authorizing Provider: Mojgan Molina DO Collected: 01/11/2020 12:00 AM Ordering Location: [facility] DermPath Lab Received: 01/12/2020 10:31 AM Pathologist: Anahy Zamudio MD Specimen: Skin, mid low back 0 12:42 PM CDT DERMATOPATHOLOGY LABORATORY Final Diagnosis Specimen A. SKIN, mid low back: DERMAL SCAR RESIDUAL MELANOCYTIC PROLIFERATION NOT IDENTIFIED (L90.5) 0 12:42 PM CDT DERMATOPATHOLOGY LABORATORY Clinical History Compound melanocytic proliferation, bx proven. Previous Bx: [id number]. 0 12:42 PM CDT DERMATOPATHOLOGY LABORATORY Gross Description Specimen A: Received is one formalin filled container labeled with the patient's name and designated mid low back.The specimen consists of an ellipse measuring [id number] and is oriented with the notch at [...] characteristic determined by the Dermatopathology Laboratory at [facility], directed by Dr. Alee Mark. These tests need not be, and therefore are not, approved by the [place] Food and Drug Administration. The tests are used for clinical purposes. Billing Codes Specimen Charges Stain Charges 13865 1 0 12:42 PM CDT DERMATOPATHOLOGY LABORATORY Embedded Images 0 12:42 PM CDT DERMATOPATHOLOGY LABORATORY Pathology/Cytolog y TISSUE SPECIMEN FROM SKIN / Unknown 01/11/2020 01/12/2020 10:31 AM CDT us Mojgan Molina DO LAB - PATHOLOGY/CYTOLOGY ORDERABLES Final Result DERMATOPATHOLOGY LABORATORY [facility] - Department of Dermatology [address] [facility], 5th Floor Lab [address] [phone] documented in this encounter Visit Diagnoses Not on filedocumented in this encounter
--- OUTSIDE RECORDS SUMMARY | 2024-12-23 15:58 | XMS_ITS | Referral Summary ---
Author Organization [facility] Address [address] [place] [address] Care Team Providers Care Automobile Service Station Attendant Name Role Phone Greer Bowers NP Primary Care Provider [phone] Ashish Rodrigues ELECTRONIC PUBLISHING SPECIALIST Unavailable [phone] Encounters Date Type Department Care Team Description 10/29/2024 Telephone [facility] ([facility]) [address] [place] [phone] Mey Barr RN Test Results (Right breast biopsy path results from 10/28/24) 10/28/2024 10:57 AM LEARNING COACH - 10/28/2024 11:59 PM LEARNING COACH Hospital Encounter [facility] ([facility]) [address] [place] [phone] Abnormal mammogram Discharge Disposition: Discharge to home or self care 10/28/2024 10:12 AM LEARNING COACH - 10/28/2024 11:59 PM LEARNING COACH Hospital Encounter [facility] ([facility]) [address] [place] [address] Abnormal mammogram Discharge Disposition: Discharge to home or self care 10/21/2024 1:32 PM LEARNING COACH - 10/21/2024 11:59 PM LEARNING COACH Hospital Encounter [facility] ([facility]) [address] [place] [address] [phone] Unspecified lump in the right breast, upper outer quadrant Discharge Disposition: Discharge to home or self care 10/21/2024 1:32 PM LEARNING COACH - 10/21/2024 11:59 PM LEARNING COACH Hospital Encounter [facility] ([facility]) [address] [place] [address] Unspecified lump in the right breast, upper outer quadrant Discharge Disposition: Discharge to home or self care 09/24/2024 Orders Only [facility] [address] [place] [address] Mojgan Molina DO from Last 3 Months Social History Tobacco Use Types Packs/Day Years Used Date Smoking Tobacco: Never Assessed Comments Unknown Sex and Gender Information Value Date Recorded Sex Assigned at Not on file Legal Sex Female 2:19 PM CDT Gender Identity Not on file Sexual Orientation Not on file Plan of Treatment Not on file Medical Devices Implanted Type Area Water Reclamation Systems Operator Device Identifier Shelf Expiration Date Model / Serial / Lot Bard Peripheral Vascular Ultraclip Bard 17ga 10cm 2 Trigger Permanent Ultrasound [id number] - [id number] Implanted:Qty: 1 on 10/28/2024 by Salinas Coronado MD at [facility] Right: Breast Bard Peripheral Vascular [id number] / / Procedures Procedure Name Priority Date/Time Associated Diagnosis Comments IGNACIO POST CLIP PLACEMENT RIGHT Schedule Routine, Read Routine (OP Routine) 10/28/2024 11:12 AM LEARNING COACH Abnormal mammogram US GUIDED BREAST BIOPSY RIGHT Schedule Routine, Read Routine (OP Routine) 10/28/2024 11:04 AM LEARNING COACH Abnormal mammogram SURGICAL PATHOLOGY Routine 10/28/2024 10 :52 AM LEARNING COACH Abnormal mammogram US BREAST RIGHT LIMITED Schedule Routine, Read Routine (OP Routine) 10/21/2024 3:30 PM LEARNING COACH Unspecified lump in the right breast, upper outer quadrant DIAGNOSTIC MAMMOGRAM BILATERAL W IGNACIO Schedule Routine, Read Routine (OP Routine) 10/21/2024 2:25 PM LEARNING COACH Unspecified lump in the right breast, upper outer quadrant SURGICAL PATHOLOGY Routine 09/24/2024 12 :00 AM LEARNING COACH from Last 3 Months Results * Ignacio Post Clip Placement Right (10/28/2024 11:12 AM LEARNING COACH) Anatomical Region Laterality Modality Breast Right Mammography 10/28/2024 11:1 4 AM LEARNING COACH Addenda Addendum by Laura Clements MD on 10/29/2024 1:35 PM LEARNING COACH ADDENDUM: Pathology from biopsy of the right [...] Laura Clements M.D. Impressions 10/28/2024 11:18 AM LEARNING COACH Successful core needle biopsy of the RIGHT [...] Laura Clements M.D. Narrative 10/28/2024 11:18 AM LEARNING COACH EXAMINATION: RIGHT BREAST CORE BIOPSY UTILIZING SONOGRAPHIC [...] entire procedure. Dr. Salinas Coronado MD (diagnostic echocardiography radiology technologist) also participated in this examination. Procedure Note [...] entire procedure. Dr. Salinas Coronado MD (diagnostic echocardiography radiology technologist) also participated in this examination. IMPRESSION: Successful [...] Guided Breast Biopsy Right (10/28/2024 11:04 AM LEARNING COACH) Anatomical Region Laterality Modality Breast Right Ultrasound 10/28/2024 11:1 4 AM LEARNING COACH Addenda Addendum by Laura Clements MD on 10/29/2024 1:35 PM LEARNING COACH ADDENDUM: Pathology from biopsy of the right [...] Laura Clements M.D. Impressions 10/28/2024 11:18 AM LEARNING COACH Successful core needle biopsy of the RIGHT [...] Laura Clements M.D. Narrative 10/28/2024 11:18 AM LEARNING COACH EXAMINATION: RIGHT BREAST CORE BIOPSY UTILIZING SONOGRAPHIC [...] entire procedure. Dr. Salinas Coronado MD (diagnostic echocardiography radiology technologist) also participated in this examination. Procedure Note [...] entire procedure. Dr. Salinas Coronado MD (diagnostic echocardiography radiology technologist) also participated in this examination. IMPRESSION: Successful [...] Final * Surgical pathology (10/28/2024 10:52 AM LEARNING COACH) Tissue specimen (specimen) (Breast biopsy, needle core) 10/28/2024 10:52 AM LEARNING COACH Comment:right breast 7:00 3 cm/fn, ultrasound biopsy, birads 4a Narrative PATHOLOGY [facility] - 10/29/2024 10:17 AM LEARNING COACH EPIC results best viewed via link to PDF [facility] Clotilde [facility] [place] [address] Note to Patients: This report may contain [...] Gender: F : 1990 (Age: 34) Address: [address] [place] [id number] Hospital #: [id number] Taken:10/28/2024 Received:10/28/2024 Reported: 10/29/2024 Patient Type: [facility] Ancillary Service: UNKNOWN Location: Physician(s): Unknown [...] Surgical Pathology and Flow Cytometry Departments at [facility] as part of an ongoing quality internship program and in compliance with federally mandated [...] Surgical Pathology and Flow Cytometry Departments of [facility]. It has not been cleared or approved by the [place]. S. Food and Drug Administration. IMAGES AND SCANNED DOCUMENTS, IF INCLUDED, ONLY VIEWABLE IN PDF VERSION OF REPORT Ashish Rodrigues NP LAB PATHOLOGY ORDERABLES Final Result PATHOLOGY [facility] 3rd Floor [place], [place] [phone] * US Breast Right Limited (10/21/2024 3:30 PM LEARNING COACH) Anatomical Region Laterality Modality Breast Right Ultrasound 10/21/2024 4:06 PM LEARNING COACH Impressions 10/21/2024 4:37 PM LEARNING COACH Therefore oval lobulated masses in the right [...] is scheduled to return to the [facility] for biopsy on 11/02/2024 at 2:15 PM. This facility will contact the referring clinician's office for an order. Dictated by: Faisal Gomez M.D. The radiology attending physician has personally reviewed this study, and had reviewed and/or edited this written report and agrees with it. Electronically signed by: Breanna Sawyer M.D. Narrative 10/21/2024 4:37 PM LEARNING COACH EXAMINATION: BILATERAL DIGITAL DIAGNOSTIC MAMMOGRAM INCLUDING CAD [...] is scheduled to return to the [facility] for biopsy on 11/02/2024 at [...] Mammogram Bilateral W Ignacio (10/21/2024 2:25 PM LEARNING COACH) Anatomical Region Laterality Modality Breast Bilateral Mammography 10/21/2024 4:06 PM LEARNING COACH Impressions 10/21/2024 4:37 PM LEARNING COACH Therefore oval lobulated masses in the right [...] is scheduled to return to the [facility] for biopsy on 11/02/2024 at 2:15 PM. This facility will contact the referring clinician's office for an order. Dictated by: Faisal Goemz M.D. The radiology attending physician has personally reviewed this study, and had reviewed and/or edited this written report and agrees with it. Electronically signed by: Breanna Sawyer M.D. Narrative 10/21/2024 4:37 PM LEARNING COACH EXAMINATION: BILATERAL DIGITAL DIAGNOSTIC MAMMOGRAM INCLUDING CAD [...] is scheduled to return to the [facility] for biopsy on 11/02/2024 at [...] lt * Surgical pathology (09/24/2024 12:00 AM LEARNING COACH) Skin, shave biopsy 09/24/2024 09/29/2024 6:33 AM LEARNING COACH Narrative 09/30/2024 2:12 PM LEARNING COACH EPIC results best viewed via link to PDF [facility] [address] [place] [address]., [address], [place] [address] [email or web address] Note to Patients: This report may [...] 09/30/2024 Submitting Physician Information: Mojgan Molina D.O. [address] [place] [address], DERMATOPATHOLOGY REPORT RESULTS DIAGNOSIS: SKIN, LEFT THIGH, [...] dh/mxf ICD-9 A; ZSD.407 Clerical Data A; 55585 The characteristics of special, immunohistochemical, and immunofluorescence stains and in-situ hybridization tests performed by the [facility] Center were deemed acceptable in ongoing quality internship measures and in compliance with regulations drawn from the Clinical Laboratory Improvement Act [id number] (CLIA '88). Control reactions for all stains performed were deemed adequate and appropriate by a pathologist prior to evaluation of patient tissue. Some diagnoses were rendered with the assistance of laboratory-developed tests utilizing analyte-specific reagents; the performance characteristic of these tests were determined by [facility] and are not cleared or approved by the US Food an Drug administration. Laboratory developed test may only be performed in a facility that is certified by the [facility] as a high-complexity laboratory under CLIA '88. These tests are used for clinical purposes and are not investigational. Mojgan Molina DO LAB PATHOLOGY ORDERABLES Final Result from Last [address] [place] [address] [facility] [employer] Address: [address] [address] [facility] [employer] Address: [facility] [id number] [place] [address] Care Teams Automobile Service Station Attendant Relationship Specialty Start Date End Date Greer Bowers NP [address] [place], [place] [phone] PCP - General Internal Medicine 10/19/24 Ashish Rodrigues NP [address] [place] [address] Nurse Practitioner Nurse Practitioner 10/21/24
--- OUTSIDE RECORDS SUMMARY | 2024-12-23 15:58 | XMS_ITS | Encounter Summary ---
Author Organization [facility] Address [address] [place] [address] Care Team Providers Care Yard General Car Supervisor Name Role Phone Unavailable Primary Care Provider Unavailabl e Encounter Details Date Type Department Care Team (Late st Contact Info) Description 12/05/2023 Lab Requisition [facility] Physician [facility] - DermPath Lab [address] [facility], [place] [address] Lashawn Bowers MD [address] [facility] [address] [place] [address] Social History Tobacco Use Types Packs/Day Years Used Date Smoking Tobacco: Never Assessed Comments Unknown Sex and Gender Information Value Date Recorded Sex Assigned at Not on file Legal Sex Female 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 Gender Identity Not on file Sexual Orientation Not on file documented as of this encounter Plan of Treatment Not on file documented as of this encounter Procedures Procedure Name Priority Date/Time Associated Diagnosis Comments DERMATOPATHOLOGY Routine 12/05/2023 11:3 0 AM CDT documented in this encounter Results * DERMATOPATHOLOGY (12/05/2023 11:30 AM CDT) Case Report Dermatopathology Report Case: [id number] Authorizing Provider: Lashawn Bowers MD Collected: 12/05/2023 11:30 AM Ordering Location: [facility] Physician [facility] - Received: 12/06/2023 06:36 AM DermPath Lab [...] determined by the Dermatopathology Laboratory at [facility], directed by Dr. Alee Mark. These tests need not be, and therefore are not, approved by the [place] Food and Drug Administration. The tests are used for clinical purposes. Billing Codes Specimen Charges Stain Charges 06102 1 2:24 PM CDT DERMATOPATHOLOGY LABORATORY Embedded Images 2:24 PM CDT DERMATOPATHOLOGY LABORATORY Pathology/Cytolo gy TISSUE SPECIMEN FROM SKIN / Unknown 12/05/2023 11:30 AM CDT 12/06/2023 6:36 AM CDT Lashawn Bowers MD LAB - PATHOLOGY/CYTOLOGY OR DERABLES Final Result DERMATOPATHOLOGY LABORATORY [facility] - Department of Dermatology [address], [address] [phone] documented in this encounter Visit Diagnoses Not on filedocumented in this encounter
--- OUTSIDE RECORDS SUMMARY | 2024-12-23 15:58 | XMS_ITS | Clinical Summary ---
Author Organization [facility] Address [address] [facility] [place] [address] Care Team Providers Care Audio Production Engineer Name Role Phone Unavailable Primary Care Provider Unavailabl e Source Comments [facility],non-owned Affiliates and Associated Physician Practices is amultiple site organization consisting of ambulatory clinics and hospital sitesin [place], [place], [place] and [place]. This disclosure is being madepursuant to the Care Everywhere program and may not contain all information available regarding this patient. 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
--- OUTSIDE RECORDS SUMMARY | 2024-12-23 15:58 | XMS_ITS | Encounter Summary ---
Author Organization [facility] Address [address] [facility] [place] [address] Care Team Providers Care Fisher Crab Name Role Phone Unavailable Primary Care Provider Unavailabl e Encounter Details Date Type Department Care Team (Late st Contact Info) Description 11/18/2019 Lab Requisition [facility] DermPath Lab [address] [facility] [place] [address] Mojgan Molina DO [address] [facility] [address] [place] [address] Social History Tobacco Use Types Packs/Day Years Used Date Smoking Tobacco: Never Assessed Comments Unknown Sex and Gender Information Value Date Recorded Sex Assigned at Not on file Legal Sex Female 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 CONNECTOR Gender Identity Not on file Sexual Orientation Not on file documented as of this encounter Plan of Treatment Not on file documented as of this encounter Procedures Procedure Name Priority Date/Time Associated Diagnosis Comments DERMATOPATHOLOGY Routine 11/17/2019 12:0 0 AM CDT documented in this encounter Results * DERMATOPATHOLOGY (11/17/2019 12:00 AM CDT) Case Report Dermatopathology Report Case: [id number] Authorizing Provider: Mojgan Molina DO Collected: 11/17/2019 12:00 AM Ordering Location: [facility] DermPath Lab Received: 11/18/2019 10:28 AM [...] microscopic description and comment) 0 7:22 PM [facility] DERMATOPATHOLOGY [facility]ORAT[facility] Clinical History A: R/O NMSC B: R/O atypia 0 7:22 PM [facility] DERMATOPATHOLOGY [facility]OR[facility] Gross Description Specimen A: Received [...] 7x6x1 mm. Jar 0. 0 7:22 PM [facility] DERMATOPATH[facility]Y [facility] Microscopic Description Specimen A. SKIN, [...] lesion in its entirety. 0 7:22 PM [facility] DERMATOPATHOLOGY [facility]ORAT[facility] Disclaimer An external and internal positive and negative controls are appropriate for the histochemical, immunohistochemical and immunofluorescence stain(s) in this case (if any), except where stated explicitly. The performance characteristics of the stain(s) cited in this report were developed and its performance characteristic determined by the Dermatopathology Laboratory at [facility], directed by Dr. Alee Mark. These tests need not be, and therefore are not, approved by the [place] Food and Drug Administration. The tests are used for clinical purposes. Billing Codes Specimen Charges Stain Charges 13411 03876 1 1 08732 27057 88926 08073 46283 1 1 1 1 1 0 7:22 PM CDT DERMATOPATHOLOGY LABORATORY Embedded Images 0 7:22 PM CDT DERMATOPATHOLOGY LABORATORY Pathology/Cytology TISSUE SPECIMEN FROM SKIN / Unknown 11/17/2019 11/18/2019 10:28 AM CDT Miscellaneous samples (specimen) TISSUE SPECIMEN FROM SKIN / Unknown 11/17/2019 11/18/2019 10:28 AM CDT us Mojgan Molina DO LAB - PATHOLOGY/CYTOLOGY ORDERABLES Final Result DERMATOPATHOLOGY LABORATORY [facility] - Department of Dermatology [address] [place] [address] 5th Floor Lab [address] [place], [place] [phone] [place] [address] documented in this encounter Visit Diagnoses Not on filedocumented in this encounter
== END 2024-12-23 13:59 | disposition home or self-care (01) ==
PROVIDERS: PCP Nurse Practitioner; Visit Provider Nurse Practitioner
DX: N20.0 Calculus of kidney (principal); K59.00 Constipation, unspecified
CPT/HCPCS: 74177; Q9967